=== PATIENT | male | born 1955 | race Caucasian/White ===

== ENCOUNTER 2022-12-21 13:10 | Inpatient (IN) | payer MEDICARE ==
[2022-12-21 14:57] LABS: Basophils # (A) 0.1 k/uL (0-0.2); Basophils % (A) 1 %; Eosinophils # (A) 0.1 k/uL (0-0.7); Eosinophils % (A) 1 %; HCT 31.9 % (39.0-53.0); HGB 10.8 gm/dL (13.0-17.5); Hypochromasia Slight; Lymphocytes # (A) 1.3 k/uL (1.0-4.8); Lymphocytes % (A) 17 %; MCH 33.7 pg (25.0-35.0); MCV 98.9 fL (80.0-100.0); Macrocytosis Slight; Mean Platelet Volume 8.3; Monocytes # (A) 0.9 k/uL (0-1.0); Monocytes % (A) 11 %; Neutrophils # (A) 5.2 k/uL (1.3-7.7); Neutrophils % (A) 67 %; Platelet Count 109 k/uL (150-450); RBC 3.22 m/uL (4.30-5.90); RDW 15.5 % (11.5-15.5); WBC 7.7 k/uL (3.8-10.6)
[2022-12-21 15:07] LABS: INR 1.2 (<1.2); Partial Thromboplastin Time 27.9 sec (22.0-30.0); Prothrombin Time 12.8 sec (9.0-12.0)
--- NOTE | 2022-12-21 15:08 | XR ---
EXAMINATION TYPE: XR chest 2V DATE OF EXAM: 12/21/2022 COMPARISON: NONE TECHNIQUE: PA and lateral views submitted. HISTORY: Difficulty breathing FINDINGS: There is right lower lobe infiltrate and consolidation with small effusion. Left lung clear. Heart size is prominent and there is ectasia of the aorta. Mild coarsening of the interstitium. No pn eumothorax. Osseous structures grossly intact. IMPRESSION: 1. Right lower lobe infiltrate and small effusion correlate for mild central venous congestion. Under lying pneumonia not excluded.
[2022-12-21 15:11] LABS: ALT 23 U/L (4-49); AST 34 U/L (17-59); African American GFR (CKD) 72 (>60 ml/min/1.73 sqM); Albumin 2.9 g/dL (3.5-5.0); Alkaline Phosphatase 94 U/L (38-126); Anion Gap 6 mmol/L; Blood Urea Nitrogen 19 mg/dL (9-20); Calcium 8.4 mg/dL (8.4-10.2); Carbon Dioxide 24 mmol/L (22-30); Chloride 106 mmol/L (98-107); Glucose 103 mg/dL (74-99); Non-African American GFR(CKD) 63 (>60 ml/min/1.73 sqM); Potassium 4.7 mmol/L (3.5-5.1); Sodium 136 mmol/L (137-145); Total Protein 7.1 g/dL (6.3-8.2)
--- NOTE | 2022-12-21 17:30 | ED ---
SOB HPI - General Chief Complaint: Shortness of Breath Stated Complaint: Asthma, SOB Time Seen by Provider: 12/21/22 17:29 Source: patient Mode of arrival: ambulatory Limitations: no limitations - History of Present Illness Initial Comments: 67-year-old male past medical history of asthma, nicotine use, liver cirrhosis - last alcoholic drink was one year ago, who presents emergency Department with shortness of breath. is at bedside and helps provide history. They normally reside in [place]. Came up to [place] in June the patient has had progressive worsening shortness of breath. He has been using his albuterol inhaler without any improvement in his symptoms. He was prescribed steroids one month ago and took the course without any improvement. He has had persistent lower extremity swelling. No history of DVT or PE. No history of congestive heart failure. Does admit to a yellow productive cough. No sick contacts. Denies fevers. No chest pain. No history of cardiac problems. Continues to smoke a pack a day. No other alleviating, precipitating modifying factors - Related Data Home Medications Medication Instructions Recorded Confirmed Cholecalciferol [Vitamin D3 (125 125 mcg PO DAILY 12/21/22 12/21/22 Mcg = 5000 Iu)] Saw [place] 500 mg PO DAILY 12/21/22 12/21/22 Super B Complex 1 cap PO DAILY 12/21/22 12/21/22 Turmeric Root Extract [Turmeric] 500 mg PO DAILY 12/21/22 12/21/22 lisinopriL [Zestril] 5 mg PO DAILY 12/21/22 12/21/22 Allergies Allergy/AdvReac Type Severity Reaction Status Date / Time pollen extracts Allergy Dyspnea Verified 12/21/22 18:39 strawberry Allergy Unknown Verified 12/21/22 18:39 Review of Systems ROS Statement: Those systems with pertinent positive or pertinent negative responses have been documented in the HPI. ROS Other: All systems not noted in ROS Statement are negative. Past Medical History Past Medical History: Asthma Additional Past Medical History / Comment(s): Cirrhosis and renal issues History of Any Multi-Drug Resistant Organisms: None Reported Past Surgical History: No Surgical Hx Reported Smoking Status: Current some day smoker Past Alcohol Use History: None Reported, Abuse Past Drug Use History: None Reported General Exam Limitations: no limitations General appearance: alert, in no apparent distress Head exam: Present: atraumatic, normocephalic, normal inspection Eye exam: Present: normal appearance, PERRL, EOMI. Absent: scleral icterus, conjunctival injection, periorbital swelling ENT exam: Present: normal exam, mucous membranes moist Neck exam: Present: normal inspection. Absent: tenderness, meningismus, lymphadenopathy Respiratory exam: Present: wheezes, accessory muscle use, other (Tachypnea). Absent: respiratory distress, rales, rhonchi, stridor Cardiovascular Exam: Present: regular rate, normal rhythm, normal heart sounds. Absent: systolic murmur, diastolic murmur, rubs, gallop, clicks GI/Abdominal exam: Present: soft, distended, normal bowel sounds. Absent: tenderness, guarding, rebound, rigid Extremities exam: Present: full ROM, normal capillary refill, pedal edema. Absent: tenderness, joint swelling, calf tenderness Back exam: Present: normal inspection Neurological exam: Present: alert, oriented X3, CN II-XII intact Psychiatric exam: Present: normal affect, normal mood Skin exam: Present: warm, dry, intact, normal color. Absent: rash Course Vital Signs 12/21/22 12/21/22 12/21/22 13:27 18:51 19:10 Temperature 97.4 F L Pulse Rate 96 89 89 Respiratory 24 18 18 Rate Blood Pressure 147/69 129/105 109/46 O2 Sat by Pulse 90 L 97 97 Oximetry 12/21/22 12/21/22 12/21/22 19:51 20:02 22:08 Temperature Pulse Rate 90 91 96 Respiratory 18 Rate Blood Pressure 97/50 O2 Sat by Pulse 95 93 L Oximetry 12/21/22 12/21/22 12/21/22 22:20 23:42 23:52 Temperature Pulse Rate 97 94 Respiratory Rate Blood Pressure O2 Sat by Pulse 95 Oximetry 12/22/22 00:00 Temperature Pulse Rate 99 Respiratory 18 Rate Blood Pressure 120/63 O2 Sat by Pulse 95 Oximetry Medical Decision Making - Medical Decision Making Was pt. sent in by a medical professional or institution (, [facility], EMBROIDERY CUTTER, urgent care, hospital, or snf...) When possible be specific @ -No Did you speak to anyone other than the patient for history (EMS, parent, family, police, friend...)? What history was obtained from this source @ -I spoke with the patient's in regards to his symptoms Did you review nursing and triage notes (agree or disagree)? Why? @ -I reviewed and agree with nursing and triage notes Were old charts reviewed (outside hosp., previous admission, EMS record, old EKG, old radiological studies, urgent care reports/EKG's, snf records)? Report findings @ -No old charts were reviewed Differential Diagnosis (chest pain, altered mental status, abdominal pain women, abdominal pain men, vaginal bleeding, weakness, fever, dyspnea, syncope, headache, dizziness, GI bleed, back pain, seizure, CVA, palpatations, mental health, musculoskeletal)? @ -Differential Dyspnea: Coronary syndrome, arrhythmia, tamponade, asthma, COPD, pulmonary embolism, pneumonia, pneumothorax, pulmonary effusion, anaphylaxis, diabetic ketoacidosis, flailed chest, pulmonary contusion, diaphragmatic rupture, anemia, neuromuscular, this is not meant to be an all-inclusive list. EKG interpreted by me (3pts min.). @ -Yes and demonstrates sinus rhythm rate of 91. WV interval 149. QRS 96. QTC of 420. No acute ST segment elevations or depressions X-rays interpreted by me (1pt min.). @ -Yes and demonstrates possible pneumonia right lower lobe with effusion CT interpreted by me (1pt min.). @ -None done U/S interpreted by me (1pt. min.). @ -None done What testing was considered but not performed or refused? (CT, X-rays, U/S, labs)? Why? @ -None What meds were considered but not given or refused? Why? @ -None Did you discuss the management of the patient with other professionals (rela zelaya i.e. , PA, EMBROIDERY CUTTER, lab, RT, psych nurse, social scientist, assembler molded frames, teacher, railroad police officer, outpatient case manager)? Give summary @ -Spoke with Elsa from [facility] who agreed to admit the patient Was smoking cessation discussed for >3mins.? @ -Yes. Patient not receptive to quitting. Nicotine patch is ordered Was critical care preformed (if so, how long)? @ -No Were there social determinants of health that impacted care today? How? (Homelessness, low income, unemployed, alcoholism, drug addiction, transportation, low edu. Level, literacy, decrease access to med. care, detention, rehab)? @ -No Was there de-escalation of care discussed even if they declined (Discuss DNR or withdrawal of care, Hospice)? DNR status @ -No What co-morbidities impacted this encounter? (DM, HTN, Smoking, COPD, CAD, Cancer, CVA, ARF, Chemo, Hep., AIDS, mental health diagnosis, sleep apnea, morbid obesity)? @ - Asthma Was patient admitted / discharged? Hospital course, mention meds given and route, prescriptions, significant lab abnormalities, going to OR and other pertinent info. @ -Upon arrival patient was placed into room 11. Thorough history and physical exam was performed. Patient is diffusely wheezy. IV is established. DuoNeb breathing treatment and 125 of Solu-Medrol is ordered. Laboratory studies are conducted. Patient does have an elevated bili however he does have known history of cirrhosis. Chest x-ray demonstrates right lower lobe pneumonia with effusion. Antibiotics are added. Echo was ordered. Recommended admission. Spoke with Elsa from the [facility]. Dr Lagunas will be placed on consult. Undiagnosed new problem with uncertain prognosis? @ -Yes Drug Therapy requiring intensive monitoring for toxicity (Heparin, Nitro, Insulin, Cardizem)? @ -No Were any procedures done? @ -No Diagnosis/symptom? @ -Acute respiratory insufficiency, acute asthma exacerbation, community- acquired pneumonia with effusion Acute, or Chronic, or Acute on Chronic? @ -Acute on chronic - asthma, acute- pneumonia Uncomplicated (without systemic symptoms) or Complicated (systemic symptoms)? @ -Complicated Side effects of treatment? @ -ALLERGIC reaction Exacerbation, Progression, or Severe Exacerbation? @ -Yes Poses a threat to life or bodily function? How? (Chest pain, [place], DE, pneumonia, PE, COPD, DKA, ARF, appy, cholecystitis, CVA, Diverticulitis, Homicidal, Suicidal, threat to staff... and all critical care pts) @ -No - Lab Data Result diagrams: 12/21/22 14:48 12/21/22 14:48 Lab Results 12/21/22 12/21/22 12/21/22 Range/Units 14:48 14:48 14:48 WBC 7.7 (3.8-10.6) k/uL RBC 3.22 L (4.30-5.90) m/uL Hgb 10.8 L (13.0-17.5) gm/dL Hct 31.9 L (39.0-53.0) % MCV 98.9 (80.0-100.0) fL MCH 33.7 (25.0-35.0) pg MCHC 34.0 (31.0-37.0) g/dL RDW 15.5 (11.5-15.5) % Plt Count 109 L (150-450) k/uL MPV 8.3 Neutrophils % 67 % Lymphocytes % 17 % Monocytes % 11 % Eosinophils % 1 % Basophils % 1 % Neutrophils # 5.2 (1.3-7.7) k/uL Lymphocytes # 1.3 (1.0-4.8) k/uL Monocytes # 0.9 (0-1.0) k/uL Eosinophils # 0.1 (0-0.7) k/uL Basophils # 0.1 (0-0.2) k/uL Hypochromasia Slight Macrocytosis Slight PT 12.8 H (9.0-12.0) sec INR 1.2 H (<1.2) APTT 27.9 (22.0-30.0) sec Sodium 136 L (137-145) mmol/L Potassium 4.7 (3.5-5.1) mmol/L Chloride 106 (98-107) mmol/L Carbon Dioxide 24 (22-30) mmol/L Anion Gap 6 mmol/L BUN 19 (9-20) mg/dL Creatinine 1.18 (0.66-1.25) mg/dL Est GFR (CKD-EPI)AfAm 72 (>60 ml/min/1.73 sqM) Est GFR (CKD-EPI)NonAf 63 (>60 ml/min/1.73 sqM) Glucose 103 H (74-99) mg/dL Calcium 8.4 (8.4-10.2) mg/dL Magnesium 2.0 (1.6-2.3) mg/dL Total Bilirubin 4.0 H (0.2-1.3) mg/dL AST 34 (17-59) U/L ALT 23 (4-49) U/L Alkaline Phosphatase 94 (38-126) U/L Troponin I (0.000-0.034) ng/mL NT-Pro-B Natriuret Pep pg/mL Total Protein 7.1 (6.3-8.2) g/dL Albumin 2.9 L (3.5-5.0) g/dL 12/21/22 12/21/22 Range/Units 14:48 14:48 WBC (3.8-10.6) k/uL RBC (4.30-5.90) m/uL Hgb (13.0-17.5) gm/dL Hct (39.0-53.0) % MCV (80.0-100.0) fL MCH (25.0-35.0) pg MCHC (31.0-37.0) g/dL RDW (11.5-15.5) % Plt Count (150-450) k/uL MPV Neutrophils % % Lymphocytes % % Monocytes % % Eosinophils % % Basophils % % Neutrophils # (1.3-7.7) k/uL Lymphocytes # (1.0-4.8) k/uL Monocytes # (0-1.0) k/uL Eosinophils # (0-0.7) k/uL Basophils # (0-0.2) k/uL Hypochromasia Macrocytosis PT (9.0-12.0) sec INR (<1.2) APTT (22.0-30.0) sec Sodium (137-145) mmol/L Potassium (3.5-5.1) mmol/L Chloride (98-107) mmol/L Carbon Dioxide (22-30) mmol/L Anion Gap mmol/L BUN (9-20) mg/dL Creatinine (0.66-1.25) mg/dL Est GFR (CKD-EPI)AfAm (>60 ml/min/1.73 sqM) Est GFR (CKD-EPI)NonAf (>60 ml/min/1.73 sqM) Glucose (74-99) mg/dL Calcium (8.4-10.2) mg/dL Magnesium (1.6-2.3) mg/dL Total Bilirubin (0.2-1.3) mg/dL AST (17-59) U/L ALT (4-49) U/L Alkaline Phosphatase (38-126) U/L Troponin I <0.012 (0.000-0.034) ng/mL NT-Pro-B Natriuret Pep 98 pg/mL Total Protein (6.3-8.2) g/dL Albumin (3.5-5.0) g/dL Disposition Clinical Impression: Asthma exacerbation, Pneumonia, Lymphedema Disposition: ADMITTED IP TO THIS HOSP Condition: Stable Is patient prescribed a controlled substance at d/c from ED?: No Time of Disposition: 18:27 Decision to Admit Reason: Admit from EC Decision Date: 12/21/22 Decision Time: 18:27
[2022-12-21] MEDS ORDERED: IPRATROPIUM-ALBUTEROL 3 ML NEB INHALATION STA (18:19)
[2022-12-21] MEDS ORDERED: methylPREDNISolone SOD SUCCI 125 MG/2 ML VIAL IV STA (18:20)
[2022-12-21] MEDS ORDERED: PNEUMONIA PROTOCOL UTILIZED 1 EACH MISC PO PRN (18:22)
[2022-12-21] MEDS ORDERED: AZITHROMYCIN 500 MG in SODIUM CHLORIDE 0.9% 250 ML IVPB STA (18:22)
[2022-12-21] MEDS ORDERED: NICOTINE 21MG/24HR PATCH TRANSDERM STA (18:28)
[2022-12-21] MEDS: IPRATROPIUM-ALBUTEROL 3 ML NEB INHALATION SCH ×2 (19:50→23:42)
[2022-12-21] MEDS: methylPREDNISolone SOD SUCCI 40 MG/ML 1 ML VIAL IV SCH (23:57)
[2022-12-22] MEDS ORDERED: IPRATROPIUM-ALBUTEROL 3 ML NEB INHALATION PRN (03:56)
--- NOTE | 2022-12-22 04:35 | P.CNPUL ---
History of Present Illness Consult date: 12/22/22 Requesting physician: Kimberly Arvizu Reason for consult: pneumonia Chief complaint: Shortness of breath History of present illness: I am seeing this patient in new consultation today 12/22/2022 for suspected right lower lobe community-acquired pneumonia. Patient is a 67-year-old white male with past medical history significant for asthma, alcoholism, alcoholic liver disease, and is a current tobacco smoker. Patient came to the emergency room yesterday evening complaining of shortness of breath and a nonproductive cough. He denies any fevers or chills. Denies sick contacts. Patient has had progressive ongoing shortness of breath since June when he came back from [place]. He does have a history of asthma, and uses a when necessary albuterol inhaler. This has not been helping. He continues to smoke approximately 5-6 cigarettes per day. He does have a distended abdomen and lower extremity edema. Denies any chest pain, palpitations, syncope, orthopnea. Denies any history of heart failure. Patient is currently sitting up in bed, on 2 L/m nasal cannula, in no acute distress. Chest x-ray on arrival shows a right lower lobe infiltrate and consolidation with a small right pleural effusion. CBC on arrival shows a WBC count of 7.7, hemoglobin 10.8, hematocrit 31.9, platelets 109. BMP on arrival was unremarkable. NT proBNP was low at 98. Troponin less than 0.012. LFTs are non-elevated, total bilirubin 4. Patient appears nontoxic, and is hemodynamically stable at this time. Review of Systems REVIEW OF SYSTEMS: CONSTITUTIONAL: Admits weight gain EYES: Denies change in vision. EARS, NOSE, MOUTH, THROAT: Denies headaches, denies sore throat. CARDIOVASCULAR: Denies chest pain, palpitations or syncopal episodes. Admits bilateral lower extremity swelling RESPIRATORY: Admits progressive shortness of breath and intermittent nonproductive cough. Denies any hemoptysis or congestion GASTROINTESTINAL: Denies change in appetite, abdominal pain, nausea and vomiting, or diarrhea. Admits abdominal distention GENITOURINARY: Denies hematuria, denies infections. MUSKULOSKELETAL: Denies pain, denies swelling. INTEGUMENTARY: Denies rash, denies eczema. NEUROLOGICAL: Denies recent memory loss, no recent seizure activity. PSYCHIATRIC: Denies anxiety, denies depression. HEMATOLOGIC/LYMPHATIC: Denies anemia, denies enlarged lymph node Past Medical History Past Medical History: Asthma Additional Past Medical History / Comment(s): Cirrhosis and renal issues History of Any Multi-Drug Resistant Organisms: None Reported Past Surgical History: No Surgical Hx Reported Smoking Status: Current some day smoker Past Alcohol Use History: None Reported, Abuse Past Drug Use History: None Reported Medications and Allergies Home Medications Medication Instructions Recorded Confirmed Type Cholecalciferol [Vitamin D3 (125 125 mcg PO DAILY 12/21/22 12/21/22 History Mcg = 5000 Iu)] Saw [place] 500 mg PO DAILY 12/21/22 12/21/22 History Super B Complex 1 cap PO DAILY 12/21/22 12/21/22 History Turmeric Root Extract [Turmeric] 500 mg PO DAILY 12/21/22 12/21/22 History lisinopriL [Zestril] 5 mg PO DAILY 12/21/22 12/21/22 History Allergies Allergy/AdvReac Type Severity Reaction Status Date / Time pollen extracts Allergy Dyspnea Verified 12/21/22 18:39 strawberry Allergy Unknown Verified 12/21/22 18:39 Physical Exam Vitals: Vital Signs Temp Pulse Resp BP Pulse Ox 12/22/22 03:00 104 H 18 122/65 94 L 12/22/22 00:00 99 18 120/63 95 12/21/22 23:52 94 12/21/22 23:42 97 12/21/22 22:20 95 12/21/22 22:08 96 18 97/50 93 L 12/21/22 20:02 91 12/21/22 19:51 90 95 12/21/22 19:10 89 18 109/46 97 12/21/22 18:51 89 18 129/105 97 12/21/22 13:27 97.4 F L 96 24 147/69 90 L Intake and Output 12/21/22 12/21/22 12/22/22 14:59 22:59 06:59 Other: Weight 106.594 kg GENERAL EXAM: Alert, is 67-year-old white male appearing stated age, comfortable in no apparent distress. HEAD: Normocephalic and atraumatic EYES: Normal reaction of pupils, equal size. Nonicteric sclera NOSE: Clear with pink turbinates. THROAT: No erythema or exudates. NECK: No masses, no JVD. CHEST: No chest wall deformity. LUNGS: Equal air entry with expiratory wheezes heard throughout. There n are diminished lung sounds at the right base, along with inspiratory crackles at the left base. on 2 L/m nasal cannula. No conversational dyspnea or accessory muscle use.. CVS: S1 and S2 normal with no audible murmur, regular rhythm. No extra heart sounds. ABDOMEN: Abdomen is quite distended, active bowel sounds, no guarding or rigidity. SPINE: No scoliosis or deformity SKIN: No rashes CENTRAL NERVOUS SYSTEM: No focal deficits, tone is normal in all 4 extremities. EXTREMITIES: There 3+ bilateral lower extremity pitting edema. No clubbing, or cyanosis. Peripheral pulses are intact. Results - Laboratory Findings CBC and BMP: 12/21/22 14:48 12/21/22 14:48 PT/INR, D-dimer PT 12.8 sec (9.0-12.0) H 12/21/22 14:48 INR 1.2 (<1.2) H 12/21/22 14:48 Abnormal lab findings: Abnormal Labs 12/21/22 12/21/22 12/21/22 14:48 14:48 14:48 RBC 3.22 L Hgb 10.8 L Hct 31.9 L Plt Count 109 L PT 12.8 H INR 1.2 H Sodium 136 L Glucose 103 H Total Bilirubin 4.0 H Albumin 2.9 L - Diagnostic Findings Chest x-ray: image reviewed Assessment and Plan Assessment: Acute hypoxemic respiratory failure secondary to suspected right lower lobe community-acquired pneumonia. Chest x-ray on arrival shows a right lower lobe infiltrate and small pleural effusion. Acute asthma exacerbation, secondary to above Bilateral lower extremity edema Essential hypertension History of alcoholism History of alcoholic liver disease Thrombocytopenia, likely related to above Chronic ongoing nicotine dependence Plan: Patient's medications, labs, chest x-ray reviewed Continue supplemental oxygen Continue empiric antibiotics Check procalcitonin level Blood cultures are pending Start Lasix 20 mg twice a day Echocardiogram ordered for the morning Start patient on a combination of bronchodilators, Symbicort inhaler, and IV Solu-Medrol We will continue to follow I have personally seen and examined the patient, performed the documentation and the assessment and plan as written. Number of minutes spent on the visit:20 This is a joint evaluation that was done along with the nurse practitioner. The patient was restless for shortness of breath. Chest x-ray shows a right lower lobe consolidation right-sided pleural effusion. At the same time the patient's abdominal distention, possible ascites, and chronic lower extremity edema. He may have underlying chronic liver disease. Possibility of a right lower lobe pneumonia cannot be completely excluded. The patient is currently covered with with IV Rocephin and Zithromax. Is also being treated for an acute COPD exacerbation. Echocardiogram is pending. We'll proceed with a CAT scan of the chest. He is a chronic smoker. He is a previous alcoholic, no active drinking for now. Prognosis guarded. We'll continue to follow. Deceleration within a more than 30 minutes. Time with Patient: Greater than 30
[2022-12-22] MEDS: SYMBICORT 160-4.5 MCG INHALER INHALATION SCH ×2 (08:18→18:10)
[2022-12-22] MEDS: IPRATROPIUM-ALBUTEROL 3 ML NEB INHALATION SCH ×4 (08:18→18:13)
--- NOTE | 2022-12-22 08:39 | XR ---
EXAMINATION TYPE: XR chest 2V DATE OF EXAM: 12/22/2022 COMPARISON: 12/21/2022 HISTORY: 67-year-old male with pneumonia TECHNIQUE: PA and lateral views FINDINGS: Heart normal size. Ectatic/tortuous thoracic aorta. I'm going moderate right pleural effusion with ad jacent opacity. Some mild patchy or strandy left basilar opacity similar. IMPRESSION: Ongoing moderate right effusion with adjacent atelectasis and/or consolidation. Similar mild patchy l eft basilar density as well. Trace left effusion noted on the lateral view.
[2022-12-22] MEDS ORDERED: NON FORMULARY DRUG (Saw Palmetto [Saw Palmetto] 500 MG Capsule) PO SCH (09:00)
[2022-12-22] MEDS ORDERED: NON FORMULARY DRUG (Turmeric Root Extract [Turmeric] 500 MG Tablet) PO SCH (09:00)
[2022-12-22] MEDS: methylPREDNISolone SOD SUCCI 40 MG/ML 1 ML VIAL IV SCH ×3 (10:25→23:48)
[2022-12-22] MEDS: FUROSEMIDE 10 MG/ML 2 ML VIAL IV SCH ×2 (10:25→20:38)
[2022-12-22] MEDS: lisinopriL 5 MG TAB PO SCH (10:25)
[2022-12-22] MEDS: CHOLECALCIFEROL 125 MCG (5000 IU) TABLET PO SCH (10:25)
[2022-12-22] MEDS: FOLIC ACID-VIT B COMPLEX-VIT C 1 CAP PO SCH (10:36)
--- NOTE | 2022-12-22 12:21 | CA ---
Transthoracic Echo Report Name: Zac De La Fuente Age: 67 Gender: M : 1955 Exam Date: 12/22/2022 09:42 Exam Location: [facility] Ht (in): 67 Wt (lb): 235 Ordering Physician: Kimberly Arvizu DO Attending/Referring Phys: [id number], [place] Eradicator Aaron Frye Procedure CPT: Indications: le swelling, vasular congestion Cardiac Hx: Technical Quality: Fair Contrast 1: Total Dose (mL): Contrast 2: Total Dose (mL): MEASUREMENTS (Male / Female) Normal Values 2D ECHO LV Diastolic Diameter PLAX 4.4 cm 4.2 - 5.9 / 3.9 - 5.3 cm LV Systolic Diameter PLAX 3.0 cm IVS Diastolic Thickness 1.6 cm 0.6 - 1.0 / 0.6 - 0.9 cm LVPW Diastolic Thickness 1.1 cm 0.6 - 1.0 / 0.6 - 0.9 cm LV Relative Wall Thickness 0.6 RV Internal Dim ED PLAX 3.9 cm LVOT Diameter 2.1 cm Aortic Root Diameter 2.7 cm LA Systolic Diameter LX 3.2 cm 3.0 - 4.0 / 2.7 - 3.8 cm LV Diastolic Volume MOD BP 81.3 cm??? 67 - 155 / 56 - 104 cm??? LV Systolic Volume MOD BP 34.7 cm??? 22 - 58 / 19 - 49 cm??? LV Ejection Fraction MOD BP 57.3 % >= 55 % LV Cardiac Index MOD BP 2055.7 cm???/min???m??? LV Diastolic Volume MOD 4C 83.9 cm??? LV Systolic Volume MOD 4C 24.2 cm??? LV Ejection Fraction MOD 4C 71.2 % LV Cardiac Index MOD 4C 2633.6 cm???/min???m??? LV Diastolic Length 4C 8.7 cm LV Systolic Length 4C 6.2 cm LV Diastolic Volume MOD 2C 79.0 cm??? LV Systolic Volume MOD 2C 43.7 cm??? LV Ejection Fraction MOD 2C 44.7 % LV Cardiac Index MOD 2C 1558.6 cm???/min???m??? LV Diastolic Length 2C 8.6 cm LV Systolic Length 2C 7.3 cm LA Volume 50.7 cm??? 18 - 58 / 22 - 52 cm??? Ascending Aorta Diameter 3.0 cm DOPPLER AV Peak Velocity 180.9 cm/s AV Peak Gradient 13.1 mmHg LVOT Peak Velocity 138.1 cm/s LVOT Peak Gradient 7.6 mmHg AV Area Cont Eq pk 2.7 cm??? MR Peak Velocity 442.2 cm/s MR Peak Gradient 78.2 mmHg Mitral E Point Velocity 108.5 cm/s Mitral A Point Velocity 137.0 cm/s Mitral E to A Ratio 0.8 MV Deceleration Time 189.9 ms MV E' Velocity 7.7 cm/s Mitral E to MV E' Ratio 14.1 TR Peak Velocity 162.0 cm/s TR Peak Gradient 10.5 mmHg Right Ventricular Systolic Press 15.5 mmHg PV Peak Velocity 156.0 cm/s PV Peak Gradient 9.7 mmHg FINDINGS Left Ventricle Normal LV size and wall thickness. Left ventricular ejection fraction is estimated at 55-60 %. Right Ventricle Normal right ventricular size. Right Atrium Normal right atrial size. Left Atrium Normal left atrial size. LA volume index= 23.4ml/m2 Mitral Valve Structurally normal mitral valve. Mild MR. Aortic Valve Mild to moderate AV calcification.no aortic valve stenosis or regurgitation. Tricuspid Valve Structurally normal tricuspid valve. Mild TR. Pulmonic Valve Pulmonic valve not well visualized. No pulmonic regurgitation. Pericardium Left pleural effusion. Aorta Normal size aortic root and proximal ascending aorta. CONCLUSIONS Normal left ventricular ejection fraction 55% Mild mitral regurgitation Aortic valve calcification without significant aortic stenosis Mild tricuspid regurgitation Left pleural effusion noted Previewed by: Dr. Sanket Beach DO (Electronically Signed) Final Date: 22 December 2022 12:19
--- NOTE | 2022-12-22 13:48 | CT ---
EXAMINATION TYPE: CT chest w con CT DLP: 564.5 mGycm, Automated exposure control for dose reduction was used. DATE OF EXAM: 12/22/2022 1:32 PM COMPARISON: Chest radiograph from 12/22/2022 CLINICAL INDICATION:Male, 67 years old with history of copd exc; PHH, cough, copd TECHNIQUE: Multiple axial images were obtained through the chest following the administration of 100 cc of Isovue 300. . MIP was performed Coronal and sagittal reformats reviewed. FINDINGS: LUNGS/ PLEURA: Persistent moderate to large right pleural effusion with associated atelectasis. Left lung is clear. Spiculated 1.2 cm nodular density within the anterior left upper lobe (series 4, image 21). No pneumothorax. Punctate calcified granulomas within the atelectatic right lower lobe AIRWAY: Patent and unremarkable.. HEART: Size within normal limits. No pericardial effusion. Minimal coronary arterial calcifications. MEDIASTINUM: No evidence of adenopathy. VASCULATURE: No aortic aneurysm. Atherosclerotic calcification of the aorta and its branches. MUSCULOSKELETAL: No acute osseous abnormalities SOFT TISSUES/LYMPH NODES: Unremarkable. LOWER NECK: No significant findings. UPPER ABDOMEN: Cirrhotic appearance of the liver with surface nodular contour, widened fissures, post erior notch sign. At least moderate volume ascites identified within the visualized upper abdomen. Sm all hiatal hernia. Paraesophageal collaterals. Gastrohepatic collateral vessels identified. Perisplen ic collateral vessels identified. Spleen is enlarged measuring at least 14.1 cm in CC dimension. IMPRESSION: 1. Moderate to large right pleural effusion with associated atelectasis. 2. Left upper lobe spiculated 1.2 cm nodular density. PET/CT is recommended for further evaluation. 3. Findings consistent with hepatic cirrhosis with portal hypertension including splenomegaly, at yvon[address] st moderate ascites, and collateral vessels.
[2022-12-22] MEDS: AZITHROMYCIN 500 MG TAB PO SCH (15:59)
--- NOTE | 2022-12-23 03:41 | P.HPIM ---
History of Present Illness H&P Date: 12/22/22 This is a 67-year-old male who presented to the emergency department with increasing shortness of breath. Per family at the bedside patient has been having progressive shortness of breath that has been ongoing over the last few months although progressively getting worse over the last few days requiring patient is currently maintained on 3 L via nasal cannula and does not normally wear oxygen outpatient. Patient reports he lives in [place] most of the time and has a primary care provider there and currently returns to [place] sometime in January or February. Patient reports to the past medical history of asthma, cirrhosis of the liver with some kidney issues, former alcoholic and quit one year ago, and continue nicotine dependence. Patient denies any other illicit drug use. Patient's at bedside reports he does have an outpatient follow- up appointment to establish with the GI sometime in early February in [place]. In the ER patient was given IV steroids and started on 60 every 6 along with breathing treatments and supplemental oxygen. Chest x-ray showed right lower lobe infiltrate and small effusion to correlate for mild central venous congestion. Patient was started on IV Lasix as well as ceftriaxone and Zithromax. Pulmonary was consulted along with 2-D echo ordered improved calcitonin. Patient with significant lower extremity swelling 2+ pitting and reports no history of heart failure that he is aware of and family at bedside reports he chronically has swelling weakness of the lower extremities. EKG was within normal limits and 2-D echo pending at this time. Patient was admitted under observation for asthma exacerbation and possible pneumonia. Patient will require more than 2 day hospitalization given patient's significant shortness of breath. Patient also with some extensive abdominal protuberance most likely ascites is patient has cirrhosis but has not been managed in the outpatient setting. Will consult GI and appreciate input and recommendations. Review Of Systems: Constitutional: No fever, no chills, no night sweats. No weight change. No weakness, fatigue or lethargy. No daytime sleepiness. EENT: No headache. No blurred vision or double vision, no loss of vision. No loss of Hearing, no ringing in the ears, no dizziness. No nasal drainage or congestion. No epistaxis. No sore throat. Lungs: Reports significant shortness of breath that has been progressively getting worse, reports cough, no sputum production. Reports wheezing. Cardiovascular: No chest pain, no lower extremity edema. No palpitations. No paroxysmal nocturnal dyspnea. No orthopnea. No lightheadedness or dizziness. No syncopal episodes. Abdominal: No abdominal pain. Reports abdominal distention which is chronic No nausea, vomiting. Reports diarrhea. No constipation. No bloody or tarry stools.. No loss of appetite. Genitourinary: No dysuria, increased frequency, urgency. No urinary retention. Musculoskeletal: No myalgias. No muscle weakness, no gait dysfunction, no frequent falls. No back pain. No neck pain. Integumentary: No wounds, no lesions. No rash or pruritus. No unusual bruising. No change in hair or nails. Neurologic: No aphasia. No facial droop. No change in mentation. No head injury. No headache. No paralysis. No paresthesia. Psychiatric: No depression. No anxiety. No mood swings. Endocrine: No abnormal blood sugars. No weight change. No excessive sweating or thirst. No cold intolerance. PHYSICAL EXAMINATION: GENERAL: The patient is alert and oriented x4, Well developed, well nourished. Obese HEENT: Pupils are round and equally reacting to light. EOMI. no scleral icterus. No conjunctival pallor. Normocephalic, atraumatic. No pharyngeal erythema. No thyromegaly. CARDIOVASCULAR: S1 and S2 muffled PULMONARY: diminished breath sounds bilaterally more so on the right with some faint expiratory wheezing and coarse rhonchi noted. ABDOMEN: soft. Nontender on exam. obese. distended, normoactive bowel sounds. No palpable organomegaly. MUSCULOSKELETAL: No joint swelling or deformity. EXTREMITIES: No cyanosis, clubbing, 2+ pedal edema. NEUROLOGICAL: Gross neurological examination did not reveal any focal deficits. SKIN: No rashes. Assessment: Shortness of breath with acute hypoxic respiratory failure secondary to chronic obstructive pulmonary disease, acute exacerbation History of asthma Right lower lobe infiltrate, community-acquired Bilateral pleural effusions Continued ongoing nicotine dependence Hypertension history Cirrhosis, most likely alcoholic from previous abuse, quit one year ago in February History of alcohol abuse Thrombocytopenia, secondary to above Obesity with a BMI of 36.8 GI prophylaxis DVT prophylaxis Full code Plan: Patient was started on Antibiotics and procalcitonin ordered with concerns of right lower lobe infiltrate Pulmonary consulted patient was started on IV steroids along with breathing inhalational treatments and CT chest ordered as chest x-ray showing pleural effusions Patient with bilateral lower extremity edema and patient with family reports this is chronic, encouraged patient to elevate lower extremity swelling rest and was started on IV Lasix twice daily. Juan Daniel wrap to bilateral lower extremities and elevating the rest Will follow-up on repeat labs in a.m. BNP was within normal limits and troponin was negative, 2-D echo ordered and pending Patient is currently maintained on 3 L via nasal cannula and does not wear oxygen outpatient, will order incentive spirometer and wean FiO2 as tolerated Patient with cirrhosis has not been managed by GI in the outpatient setting and has an appointment in [place] where he lives sometime in February. Will consult GI and appreciate input recommendations Encouraged complete smoking cessation and will order nicotine patch if needed The impression and plan of care has been dictated by Loree Mayorga, nurse practitioner as directed. Dr. Brice MD I have performed a history and examination and MDM of this patient, discussed the same with the dictator, and agree with the dictator's assessment and plan as written ,documented as a scribe. Based on total visit time, I have performed more than 50% of the visit. Any additional findings or plans will be noted. Past Medical History Past Medical History: Asthma Additional Past Medical History / Comment(s): Cirrhosis and renal issues History of Any Multi-Drug Resistant Organisms: None Reported Past Surgical History: No Surgical Hx Reported Smoking Status: Current some day smoker Past Alcohol Use History: None Reported, Abuse Past Drug Use History: None Reported Medications and Allergies Home Medications Medication Instructions Recorded Confirmed Type Cholecalciferol [Vitamin D3 (125 125 mcg PO DAILY 12/21/22 12/21/22 History Mcg = 5000 Iu)] Saw [place] 500 mg PO DAILY 12/21/22 12/21/22 History Super B Complex 1 cap PO DAILY 12/21/22 12/21/22 History Turmeric Root Extract [Turmeric] 500 mg PO DAILY 12/21/22 12/21/22 History lisinopriL [Zestril] 5 mg PO DAILY 12/21/22 12/21/22 History Allergies Allergy/AdvReac Type Severity Reaction Status Date / Time pollen extracts Allergy Dyspnea Verified 12/21/22 18:39 strawberry Allergy Unknown Verified 12/21/22 18:39 Physical Exam Vitals: Vital Signs Temp Pulse Pulse Resp BP BP Pulse Ox 12/22/22 08:19 104 H 96 12/22/22 07:26 97.6 F 101 H 17 138/72 100 12/22/22 05:59 106 H 18 105/58 95 12/22/22 04:41 105 H 12/22/22 04:32 104 H 12/22/22 03:00 104 H 18 122/65 94 L 12/22/22 00:00 99 18 120/63 95 12/21/22 23:52 94 12/21/22 23:42 97 12/21/22 22:20 95 12/21/22 22:08 96 18 97/50 93 L 12/21/22 20:02 91 12/21/22 19:51 90 95 12/21/22 19:10 89 18 109/46 97 12/21/22 18:51 89 18 129/105 97 12/21/22 13:27 97.4 F L 96 24 147/69 90 L Intake and Output 12/21/22 12/22/22 12/22/22 22:59 06:59 14:59 Intake Total 118 Balance 118 Intake: Oral 118 Results CBC & Chem 7: 12/21/22 14:48 12/21/22 14:48 Labs: Abnormal Lab Results - Last 24 Hours (Table) 12/21/22 12/21/22 12/21/22 Range/Units 14:48 14:48 14:48 RBC 3.22 L (4.30-5.90) m/uL Hgb 10.8 L (13.0-17.5) gm/dL Hct 31.9 L (39.0-53.0) % Plt Count 109 L (150-450) k/uL PT 12.8 H (9.0-12.0) sec INR 1.2 H (<1.2) Sodium 136 L (137-145) mmol/L Glucose 103 H (74-99) mg/dL Total Bilirubin 4.0 H (0.2-1.3) mg/dL Albumin 2.9 L (3.5-5.0) g/dL Assessment and Plan Time with Patient: Greater than 30
[2022-12-23] MEDS: methylPREDNISolone SOD SUCCI 40 MG/ML 1 ML VIAL IV SCH ×2 (07:59→15:37)
[2022-12-23] MEDS: FUROSEMIDE 10 MG/ML 2 ML VIAL IV SCH (08:00)
[2022-12-23] MEDS: CHOLECALCIFEROL 125 MCG (5000 IU) TABLET PO SCH (08:00)
[2022-12-23] MEDS: lisinopriL 5 MG TAB PO SCH (08:00)
[2022-12-23] MEDS: FOLIC ACID-VIT B COMPLEX-VIT C 1 CAP PO SCH (08:00)
[2022-12-23 08:49] LABS: BUN/Creat Ratio 22.31 Ratio (12.00-20.00); Blood Urea Nitrogen 35.7 mg/dL (9.0-27.0); Calcium 8.5 mg/dL (8.7-10.3); Carbon Dioxide 21.5 mmol/L (21.6-31.8); Chloride 105 mmol/L (96-109); Glucose 127 mg/dL (70-110); Magnesium 2.1 mg/dL (1.5-2.4); Potassium 5.1 mmol/L (3.5-5.5); Sodium 134 mmol/L (135-145)
[2022-12-23] MEDS: IPRATROPIUM-ALBUTEROL 3 ML NEB INHALATION SCH ×4 (08:49→19:44)
[2022-12-23] MEDS: SYMBICORT 160-4.5 MCG INHALER INHALATION SCH ×2 (08:50→19:44)
[2022-12-23] MEDS: SPIRONOLACTONE 25 MG TAB PO SCH (09:18)
[2022-12-23 09:46] LABS: Acanthocytes 2+; Basophils # (A) 0.01 X 10*3/uL (0.00-0.10); Basophils % (A) 0.1 %; Eosinophils # (A) 0 X 10*3/uL (0.04-0.35); Eosinophils % (A) 0 %; HCT 24.7 % (39.6-50.0); HGB 8.1 d/dL (13.0-17.0); Lymphocytes # (A) 0.78 X 10*3/uL (0.90-5.00); Lymphocytes % (A) 7.5 %; MCH 32.4 pg (27.0-32.0); MCHC 32.8 d/dL (32.0-37.0); MCV 98.8 FL (80.0-97.0); Macrocytosis (M) 2+; Mean Platelet Volume 10.2 FL (9.5-12.2); Monocytes # (A) 0.61 X 10*3/uL (0.20-1.00); Monocytes % (A) 5.9 %; NRBC Per 100 WBC 0 X 10*3/uL (0.00-0.01); Neutrophils % (A) 85.6 %; Platelet Count 87 X 10*3/uL (140-440); RDW 16.4 % (11.5-14.5); WBC 10.39 X 10*3/uL (4.50-10.00)
--- NOTE | 2022-12-23 14:24 | P.PN ---
Subjective Progress Note Date: 12/23/22 I am seeing this patient in new consultation today 12/22/2022 for suspected right lower lobe community-acquired pneumonia. Patient is a 67-year-old white male with past medical history significant for asthma, alcoholism, alcoholic liver disease, and is a current tobacco smoker. Patient came to the emergency room yesterday evening complaining of shortness of breath and a nonproductive cough. He denies any fevers or chills. Denies sick contacts. Patient has had progressive ongoing shortness of breath since June when he came back from [place]. He does have a history of asthma, and uses a when necessary albuterol inhaler. This has not been helping. He continues to smoke approximately 5-6 ci garettes per day. He does have a distended abdomen and lower extremity edema. Denies any chest pain, palpitations, syncope, orthopnea. Denies any history of heart failure. Patient is currently sitting up in bed, on 2 L/m nasal cannula, in no acute distress. Chest x-ray on arrival shows a right lower lobe infiltrate and consolidation with a small right pleural effusion. CBC on arrival shows a WBC count of 7.7, hemoglobin 10.8, hematocrit 31.9, platelets 109. BMP on arrival was unremarkable. NT proBNP was low at 98. Troponin less than 0.012. LFTs are non-elevated, total bilirubin 4. Patient appears nontoxic, and is hemodynamically stable at this time. On today's evaluation of a 2022, the patient continues to be short of breath. Limited improvement since yesterday the patient is on accommodation of Rocephin and Zithromax. CAT scan of the chest was done yesterday and the patient was found to have a large right-sided pleural effusion along with compressive atelectasis in the right lung base. There is also nonspecific left upper lobe density measuring 1.2 cm in size. The patient has underlying liver cirrhosis with portal hypertension and splenomegaly and presence of paraesophageal collaterals and gastrohepatic lateral vessels all consistent with liver cirrhosis. He continues to have lower extremity edema. He does have moderate volume of ascites also identified. The echo was also done and the patient was found to have a normal LV function, no significant valvular abnormalities. The echoes at 10 hemoglobin of 8.1 and a platelet count of 87. Sodium is at 134, BUN is at 35 with a creatinine of 1.6. The pro-calcitonin level is at 0.09. He does have significant edema lower extremity bilaterally and the patient remains on IV Lasix. Objective - Vital Signs Vital signs: Vital Signs Temp 97.7 F 12/23/22 07:50 Pulse 104 H 12/23/22 12:55 Resp 16 12/23/22 07:50 BP 104/50 12/23/22 07:50 Pulse Ox 92 L 12/23/22 08:54 FiO2 Intake & Output 12/22/22 12/23/22 12/23/22 18:59 06:59 18:59 Intake Total 464 Balance 464 Intake: Intake, IV Titration 50 Amount cefTRIAXone 2 gm In 50 Sodium Chloride 0.9% 50 ml @ 100 mls/hr IVPB Q24HR [facility] Rx#:[id number] Oral 414 Other: Voiding Method Toilet Toilet # Voids 2 3 - Exam GENERAL EXAM: Alert, is 67-year-old white male appearing stated age, comfortable in no apparent distress. The patient is currently on 2 L of oxygen nasal cannula HEAD: Normocephalic and atraumatic EYES: Normal reaction of pupils, equal size. Nonicteric sclera NOSE: Clear with pink turbinates. THROAT: No erythema or exudates. NECK: No masses, no JVD. CHEST: No chest wall deformity. LUNGS: Equal air entry with expiratory wheezes heard throughout. There n are diminished lung sounds at the right base, along with inspiratory crackles at the left base. on 2 L/m nasal cannula. No conversational dyspnea or accessory muscle use.. CVS: S1 and S2 normal with no audible murmur, regular rhythm. No extra heart sounds. ABDOMEN: Abdomen is quite distended, active bowel sounds, no guarding or rigidity. SPINE: No scoliosis or deformity SKIN: No rashes CENTRAL NERVOUS SYSTEM: No focal deficits, tone is normal in all 4 extremities. EXTREMITIES: There 3+ bilateral lower extremity pitting edema. No clubbing, or cyanosis. Peripheral pulses are intact. - Labs CBC & Chem 7: 12/23/22 05:46 12/23/22 05:46 Labs: Abnormal Lab Results - Last 24 Hours (Table) 12/23/22 12/23/22 Range/Units 05:46 05:46 WBC 10.39 H (4.50-10.00) X 10*3/uL RBC 2.50 L (4.40-5.60) X 10*6/uL Hgb 8.1 L (13.0-17.0) d/dL Hct 24.7 L (39.6-50.0) % MCV 98.8 H (80.0-97.0) FL MCH 32.4 H (27.0-32.0) pg RDW 16.4 H (11.5-14.5) % Plt Count 87 L (140-440) X 10*3/uL Neutrophils # 8.90 H (1.80-7.70) X 10*3/uL Lymphocytes # 0.78 L (0.90-5.00) X 10*3/uL Eosinophils # 0 L (0.04-0.35) X 10*3/uL Macrocytosis (manual) 2+ A Acanthocytes (Spur) 2+ A Sodium 134 L (135-145) mmol/L Carbon Dioxide 21.5 L (21.6-31.8) mmol/L BUN 35.7 H (9.0-27.0) mg/dL Creatinine 1.6 H (0.6-1.5) mg/dL Est GFR (CKD-EPI) 46 L (>=60) BUN/Creatinine Ratio 22.31 H (12.00-20.00) Ratio Glucose 127 H (70-110) mg/dL Calcium 8.5 L (8.7-10.3) mg/dL Microbiology - Last 24 Hours (Table) 12/21/22 18:45 Blood Culture - Preliminary Blood 12/21/22 19:00 Blood Culture - Preliminary Blood Assessment and Plan Assessment: Acute hypoxemic respiratory failure secondary to suspected right lower lobe community-acquired pneumonia. CAT scan of the chest confirms presence of moderate to large size right-sided pleural effusion. Chronic liver cirrhosis alcoholic in nature with evidence of splenomegaly, portal hypertension and ascites and lower extremity edema Acute kidney injury and the patient is currently on Lasix Shortness of breath secondary to above Acute asthma exacerbation, secondary to above Bilateral lower extremity edema Essential hypertension History of alcoholism Thrombocytopenia, likely related to above, secondary to chronic liver disease Chronic ongoing nicotine dependence Nonspecific left upper lobe pulmonary nodule measuring around 1 cm in size, subpleural, likely inflammatory Plan Right-sided thoracentesis was done and a total of 1.6 L of fluid was aspirated. Awaiting fluid analysis. The fluid itself was somewhat bloody dark red in color. Patient tolerated the procedure well Echocardiogram was noted and the patient presented function Consider paracentesis Continue IV Lasix and monitor renal function Continue antibiotics Pneumonia is doubtful. Pro-calcitonin level is low We'll continue to follow
--- NOTE | 2022-12-23 14:25 | P.PCN ---
Date of Procedure: 12/23/22 Preoperative Diagnosis: Right-sided pleural effusion Postoperative Diagnosis: Same Procedure(s) Performed: Thoracentesis, right side Anesthesia: local Surgeon: Christiano Gonzales Estimated Blood Loss (ml): 0 Pathology: other Condition: stable Disposition: floor Operative Findings: A time out was performed and the chest x-ray was reviewed, the appropriate side was confirmed and marked. My hands were washed immediately prior to the procedure. I wore a surgical cap, mask with protective eyewear, sterile gown and sterile gloves throughout the procedure. The patient was prepped and draped in a sterile manner using chlorhexidine scrub after the appropriate level was percus sed and confirmed by ultrasound. 1% lidocaine was used to anesthesize the skin, subcutaneous tissue, superior aspect of the rib periosteum and parietal pleura. A finder needle was then introduced over the superior aspect of the rib to locate the pleural fluid; 2colored fluid was aspirated at a depth of approximately 2 cm. A 10-blade scalpel was used to lindsay the skin at the insertion site. The [id number] needle was then introduced through the skin incision into the pleural space using negative aspiration pressure and the red colometric indicator to confirm appropriate positioning of the needle. The thoracentesis catheter was then threaded without difficulty. 1600 ml of turbid dark red colored fluid was removed without difficulty. The catheter was then removed. No immediate complications were noted during the procedure. A post- procedure chest x-ray is pending at the time of this note. The fluid will be sent for studies. Estimated blood loss is 0cc
--- NOTE | 2022-12-23 14:34 | XR ---
EXAMINATION TYPE: XR chest 2V DATE OF EXAM: 12/23/2022 2:28 PM COMPARISON: Chest radiographs from 12/22/2022, CT chest dated 12/22/2022 TECHNIQUE: XR chest 2V Frontal and lateral views of the chest. CLINICAL INDICATION:Male, 67 years old with history of thoracentesis right lung; FINDINGS: Lungs/Pleura: Small to moderate size right pleural effusion with associated atelectasis. No pneumotho rax. Pulmonary vascularity: Mild pulmonary vascular congestion. Heart/mediastinum: Cardiomediastinal silhouette is unremarkable. Musculoskeletal: Multiple level degenerative disc disease changes seen throughout the spine. IMPRESSION: 1. Small to moderate-sized right pleural effusion status post thoracentesis. No pneumothorax. 2. Mild pulmonary vascular congestion.
--- NOTE | 2022-12-23 15:11 | US ---
EXAMINATION TYPE: US abdomen limited DATE OF EXAM: 12/23/2022 COMPARISON: NONE CLINICAL INDICATION: Male, 67 years old with history of ascites; ABD distention TECHNIQUE: Multiple castro scale images of both legs were obtained. FINDINGS/IMPRESSION: Moderate amount of ascites identified within the right flank.
--- NOTE | 2022-12-23 15:19 | P.PN ---
Subjective Progress Note Date: 12/23/22 This is a 67-year-old male who presented to the emergency department with increasing shortness of breath. Per family at the bedside patient has been having progressive shortness of breath that has been ongoing over the last few months although progressively getting worse over the last few days requiring patient is currently maintained on 3 L via nasal cannula and does not normally wear oxygen outpatient. Patient reports he lives in [place] most of the time and has a primary care provider there and currently returns to [place] sometime in January or February. Patient reports to the past medical history of asthma, cirrhosis of the liver with some kidney issues, former alcoholic and quit one ye ar ago, and continue nicotine dependence. Patient denies any other illicit drug use. Patient's at bedside reports he does have an outpatient follow-up appointment to establish with the GI sometime in early February in [place]. In the ER patient was given IV steroids and started on 60 every 6 along with breathing treatments and supplemental oxygen. Chest x-ray showed right lower lobe infiltrate and small effusion to correlate for mild central venous congestion. Patient was started on IV Lasix as well as ceftriaxone and Zithromax. Pulmonary was consulted along with 2-D echo ordered improved calcitonin. Patient with significant lower extremity swelling 2+ pitting and reports no history of heart failure that he is aware of and family at bedside reports he chronically has swelling weakness of the lower extremities. EKG was within normal limits and 2-D echo pending at this time. Patient was admitted under observation for asthma exacerbation and possible pneumonia. Patient will require more than 2 day hospitalization given patient's significant shortness of breath. Patient also with some extensive abdominal protuberance most likely ascites is patient has cirrhosis but has not been managed in the outpatient setting. Will consult GI and appreciate input and recommendations. 12/23/2022 Patient seen and evaluated in follow-up this morning currently sitting up at the side of the bed maintained on room air reports significant improvement in shortness of breath. Underwent CT chest yesterday showing pleural effusion, worse on the right and planning for possible thoracentesis today. GI following as well and patient continues to have abdominal distention that is tympanic would recommend obtaining an ultrasound of the abdomen for possible paracentesis. Patient being started on Aldactone and currently maintained on IV Lasix twice daily although kidney functions worsening and will consult and appreciate input and recommendations from nephrology. Patient is continued on IV steroids along with breathing inhalational treatments and will continue. Recommend titrating steroids in the next day or so to oral. Patient is afebrile with no reported chest pain or palpitations noted. Patient to continue on renal diet with low potassium and also fluid restrictions. Review of systems: Constitutional: No reports of fatigue, fever, or chills Cardiovascular: No reports of chest pain or palpitations Respiratory: reports of improvements in shortness of breath GI: No reports of nausea, vomiting, reports continuing to have diarrhea : No reports of dysuria or retention Neurovascular: No reports of weakness or numbness, reports bilateral lower extremity swelling All medications have been reviewed PHYSICAL EXAMINATION: GENERAL: The patient is alert and oriented x4, Well developed, well nourished. Obese HEENT: Pupils are round and equally reacting to light. EOMI. no scleral icterus. No conjunctival pallor. Normocephalic, atraumatic. No pharyngeal erythema. No thyromegaly. CARDIOVASCULAR: S1 and S2 muffled PULMONARY: diminished breath sounds bilaterally more so on the right with some faint expiratory wheezing and coarse rhonchi noted. Significant improvement in wheezing ABDOMEN: soft. Nontender on exam. obese. distended, normoactive bowel sounds. No palpable organomegaly. MUSCULOSKELETAL: No joint swelling or deformity. EXTREMITIES: No cyanosis, clubbing, 2+ pedal edema. NEUROLOGICAL: Gross neurological examination did not reveal any focal deficits. SKIN: No rashes. Assessment: Shortness of breath with acute hypoxic respiratory failure multifactorial, secondary to chronic obstructive pulmonary disease, acute exacerbation as well as bilateral pleural effusions Status post right-sided thoracentesis for right-sided pleural effusion with approximately 1600 mL's removed and sent for analysis Left upper lobe spiculated 1.2 cm nodular density will need outpatient PET/CT for further evaluation History of asthma Concerns for Right lower lobe infiltrate, community-acquired, ruled out suspicion is low improved calcitonin is 0.09 Continued ongoing nicotine dependence Hypertension history Cirrhosis, most likely alcoholic from previous abuse, quit one year ago in February History of alcohol abuse Thrombocytopenia, secondary to above Obesity with a BMI of 36.8 GI prophylaxis DVT prophylaxis Full code Plan: Patient was placed on empiric Antibiotics and procalcitonin was normal at 0.09 and pulmonary following head CT of the chest which showed pleural effusions, pneumonia less likely, concern for COPD exacerbation as well as bilateral pleural effusions more so on the right and is status post thoracentesis about 1.6 L removed and sent for analysis interventional radiology consulted for possible paracentesis with GI following Patient is continued on IV Lasix twice daily and will transition to once daily as kidney functions trending up and will consult and appreciate input and recommendations from nephrology as patient continues with significant overload. We'll continue fluid restrictions of 1500 mL daily as well 2-D echo shows EF is approximately 55-60% with mild mitral regurgitation along with aortic valve calcification without significant aortic stenosis with mild tricuspid regurgitation and left pleural effusion noted Patient is continued on steroids and breathing treatments and will continue. Patient currently on room air denies worsening shortness of breath and reports some improvement in shortness of breath Will follow-up on repeat labs in a.m. Encouraged complete smoking cessation and will order nicotine patch if needed The impression and plan of care has been dictated by Loree Mayorga, nurse practitioner as directed. Dr. Brice MD I have performed a history and examination and MDM of this patient, discussed the same with the dictator, and agree with the dictator's assessment and plan as written ,documented as a scribe. Based on total visit time, I have performed more than 50% of the visit. Any additional findings or plans will be noted. Objective - Vital Signs Vital signs: Vital Signs Temp 97.7 F 12/23/22 07:50 Pulse 104 H 12/23/22 12:55 Resp 16 12/23/22 07:50 BP 104/50 12/23/22 07:50 Pulse Ox 92 L 12/23/22 08:54 FiO2 Intake & Output 12/22/22 12/23/22 12/23/22 18:59 06:59 18:59 Intake Total 464 Balance 464 Intake: Intake, IV Titration 50 Amount cefTRIAXone 2 gm In 50 Sodium Chloride 0.9% 50 ml @ 100 mls/hr IVPB Q24HR MARGIE Rx#:[id number] Oral 414 Other: Voiding Method Toilet Toilet # Voids 2 3 - Labs CBC & Chem 7: 12/23/22 05:46 12/23/22 05:46 Labs: Abnormal Lab Results - Last 24 Hours (Table) 12/23/22 12/23/22 Range/Units 05:46 05:46 WBC 10.39 H (4.50-10.00) X 10*3/uL RBC 2.50 L (4.40-5.60) X 10*6/uL Hgb 8.1 L (13.0-17.0) d/dL Hct 24.7 L (39.6-50.0) % MCV 98.8 H (80.0-97.0) FL MCH 32.4 H (27.0-32.0) pg RDW 16.4 H (11.5-14.5) % Plt Count 87 L (140-440) X 10*3/uL Neutrophils # 8.90 H (1.80-7.70) X 10*3/uL Lymphocytes # 0.78 L (0.90-5.00) X 10*3/uL Eosinophils # 0 L (0.04-0.35) X 10*3/uL Macrocytosis (manual) 2+ A Acanthocytes (Spur) 2+ A Sodium 134 L (135-145) mmol/L Carbon Dioxide 21.5 L (21.6-31.8) mmol/L BUN 35.7 H (9.0-27.0) mg/dL Creatinine 1.6 H (0.6-1.5) mg/dL Est GFR (CKD-EPI) 46 L (>=60) BUN/Creatinine Ratio 22.31 H (12.00-20.00) Ratio Glucose 127 H (70-110) mg/dL Calcium 8.5 L (8.7-10.3) mg/dL Microbiology - Last 24 Hours (Table) 12/21/22 18:45 Blood Culture - Preliminary Blood 12/21/22 19:00 Blood Culture - Preliminary Blood
[2022-12-23] MEDS: AZITHROMYCIN 500 MG TAB PO SCH (15:37)
--- NOTE | 2022-12-23 16:36 | P.CONS ---
History of Present Illness - Reason for Consult Consult date: 12/23/22 Cirrhosis Requesting physician: Loree Mayorga - Chief Complaint Shortness of breath - History of Present Illness This pleasant 67-year-old male who presented to the emergency department with complaints of shortness of breath. He has a past medical history including asth ma, nicotine use, and alcoholic liver cirrhosis. Patient resides half the year in [place] and half the year in [place]. Apparently patient was diagnosed with urosepsis of the liver in May of this year in [place]. He was started on diuretics but his states that he said it wasn't working so he stopped taking them once he moved back to [place]. He has not established with PCP or any gastroenterology here in [place]. Patient states that he's been having lower extremity swelling as well as abdominal distention for the last several months. Patient has long-standing history of alcoholism and heavy alcohol use. He states he quit drinking about one year ago when his doctor was concerned that he had some kidney issues and they were working him up for possible kidney cancer. His however says that he still has occasional drinks. He states that that was all negative. Gastroenterology was consulted for cirrhosis of the liver. Labs WBC 10.3 hemoglobin 8.1 platelet count 87,000 INR 1.2 sodium 134 potassium 5.1 BUN 35.7 creatinine 1.6 total bilirubin 4.0 AST 34 ALT [address] with contrast with findings of moderate to large right pleural effusion with associated atelectasis, left upper lobe spiculated 1.2 cm nodular density. PET/CT is recommended for further evaluation. Findings consistent with hepatic cirrhosis with portal hypertension including splenomegaly at least moderate ascites and collateral vessels. Review of Systems REVIEW OF SYSTEMS: CARDIOPULMONARY: No chest pain. Reported shortness of breath. Lower extremity edema. Gastrointestinal: No abdominal pain. Patient does report abdominal distention for the last few months duration. No nausea or vomiting. No hematemesis, coffee-ground emesis. No rectal bleeding, or melena. GENITOURINARY: No dysuria or hematuria. MUSCULOSKELETAL: Reports normal range of motion., Joint pain. SKIN: No rashes. No jaundice. ENDOCRINE: No chills, fevers. No excessive weight gain or loss. No polydipsia or polyuria. PSYCHIATRIC: Unremarkable. NEUROLOGY: No change in mental status. Denies dizziness, headache. ENT: Vision unremarkable. CONSTITUTIONAL: No recent weight loss. No fever, chills, night sweats. Past Medical History Past Medical History: Asthma Additional Past Medical History / Comment(s): Cirrhosis and renal issues History of Any Multi-Drug Resistant Organisms: None Reported Past Surgical History: No Surgical Hx Reported Smoking Status: Current some day smoker Past Alcohol Use History: None Reported, Abuse Past Drug Use History: None Reported Medications and Allergies Home Medications Medication Instructions Recorded Confirmed Type Cholecalciferol [Vitamin D3 (125 125 mcg PO DAILY 12/21/22 12/21/22 History Mcg = 5000 Iu)] Saw [place] 500 mg PO DAILY 12/21/22 12/21/22 History Super B Complex 1 cap PO DAILY 12/21/22 12/21/22 History Turmeric Root Extract [Turmeric] 500 mg PO DAILY 12/21/22 12/21/22 History lisinopriL [Zestril] 5 mg PO DAILY 12/21/22 12/21/22 History Allergies Allergy/AdvReac Type Severity Reaction Status Date / Time pollen extracts Allergy Dyspnea Verified 12/21/22 18:39 strawberry Allergy Unknown Verified 12/21/22 18:39 Physical Exam Vitals: Vital Signs Temp Pulse Pulse Pulse Resp BP Pulse Ox 12/23/22 02:05 98.6 F 93 14 127/75 94 L 12/22/22 19:50 98 F 111 H 16 115/60 92 L 12/22/22 18:23 104 H 12/22/22 18:13 105 H 12/22/22 15:25 113 H 12/22/22 15:13 110 H 12/22/22 15:00 97.7 F 106 H 18 114/68 94 L 12/22/22 11:23 92 12/22/22 11:13 96 Intake and Output 12/22/22 12/23/22 12/23/22 22:59 06:59 14:59 Intake Total 296 Balance 296 Intake: Oral 296 Other: Voiding Method Toilet # Voids 3 2 General appearance: The patient is alert, oriented, appears in no acute distress. Obese. HET: Head is normocephalic and atraumatic. Conjunctiva pink. Sclera icteric. Neck: Supple without lymphadenopathy. Trachea midline. Heart: S1 S2. Regular rate and rhythm. Lungs: Clear to auscultation. Abdomen: Soft, nontender, hepatomegaly, distended with ascites. No guarding or rigidity. Skin: No rashes. Jaundice. Extremities: Normal skin color and turgor. Lower extremity edema bilaterally. Neurological: No focal deficits. Alert and oriented x3. Results CBC & Chem 7: 12/23/22 05:46 12/23/22 05:46 Labs: Microbiology - Last 24 Hours (Table) 12/21/22 18:45 Blood Culture - Preliminary Blood 12/21/22 19:00 Blood Culture - Preliminary Blood Assessment and Plan (1) Alcoholic cirrhosis of liver with ascites Narrative/Plan: 67-year-old male with long-standing history of alcohol abuse and alcoholic dependence came in with shortness of breath and lower extremity swelling as well as abdominal distention. Patient recently diagnosed with cirrhosis of the liver back in May in [place]. Patient resides part-time in [place] part- time in [place]. He has no established PCP in [place]. Has not followed with any servomechanism designer or epic prelude analyst. He was prescribed initially diuretics when he was in [place] however he stopped taking them. Patient presented with shortness of breath with right pleural effusion. CT chest shows cirrhotic liver with portal hypertension and ascites. Will plan for paracentesis with fluid studies. Discussed with patient and the importance of complete alcohol abstinence. Can follow-up on discharge however patient does also have a appointment with servomechanism designer/liver specialist in [place] 02/17/2023. Current Visit: Yes Status: Acute Code(s): K70.31 - ALCOHOLIC CIRRHOSIS OF LIVER WITH ASCITES SNOMED Code(s): 016516970 (2) Pleural effusion Current Visit: Yes Status: Acute Code(s): J90 - PLEURAL EFFUSION, NOT ELSEWHERE CLASSIFIED SNOMED Code(s): 55051983 (3) History of alcohol abuse Current Visit: Yes Status: Acute Code(s): F10.11 - ALCOHOL ABUSE, IN REMISSION SNOMED Code(s): 534714947 Plan: 1. Continue symptomatic and supportive care 2. Low sodium diet 3. Consult to interventional radiology for therapeutic paracentesis with fluid studies 4. Continue Lasix, recommend discharge with 40 mg Lasix daily 5. Aldactone 100 mg daily added 6. Alcohol abstinence 7. Instructed patient to keep appointment as scheduled with liver specialist in [place] on 02/17/2023 8. Patient to follow-up with gastroenterology to establish one to 2 weeks. Thank you for this consultation, we'll continue to follow. Dr. Jovi Martinez I agree with the dictator's note, documented as a scribe by Sammie Lopez.
[2022-12-24] MEDS: methylPREDNISolone SOD SUCCI 40 MG/ML 1 ML VIAL IV SCH ×3 (00:52→16:21)
[2022-12-24 08:14] LABS: Appearance,BF Bloody (Clear)
[2022-12-24] MEDS: SYMBICORT 160-4.5 MCG INHALER INHALATION SCH ×2 (08:21→21:00)
[2022-12-24] MEDS: IPRATROPIUM-ALBUTEROL 3 ML NEB INHALATION SCH ×4 (08:21→20:59)
[2022-12-24] MEDS: FOLIC ACID-VIT B COMPLEX-VIT C 1 CAP PO SCH (08:58)
[2022-12-24] MEDS: CHOLECALCIFEROL 125 MCG (5000 IU) TABLET PO SCH (08:58)
[2022-12-24] MEDS: SPIRONOLACTONE 25 MG TAB PO SCH (08:59)
[2022-12-24] MEDS: FUROSEMIDE 10 MG/ML 2 ML VIAL IV SCH (08:59)
--- NOTE | 2022-12-24 11:52 | US ---
Ultrasound-guided paracentesis. DATE OF EXAM: 12/24/2022 CLINICAL HISTORY: Ascites The procedure was discussed with the patient. The risks, complications, benefits, and alternatives we re discussed and any questions were answered. Informed consent was obtained. The patient was placed s upine on the ultrasound table and prepped and draped in the usual sterile fashion. All elements of maximal barrier technique were utilized. Under ultrasound guidance, access into the right lower quadrant was obtained, via the paracentesis catheter system and direct ultrasound guidanc e. Approximately 6.9 liters of straw-colored fluid was removed. The patient was stable throughout the pr ocedure and remained stable upon discharge from Department of Radiology. IMPRESSION: Successful paracentesis under ultrasound guidance.
[2022-12-24] MEDS: ALBUMIN HUMAN 25% 50 ML in EMPTY BAG 1 BAG IVPB SCH ×4 (12:27→14:00)
[2022-12-24 14:04] LABS: BUN/Creat Ratio 27.19 Ratio (12.00-20.00); Blood Urea Nitrogen 43.5 mg/dL (9.0-27.0); Carbon Dioxide 22.9 mmol/L (21.6-31.8); Chloride 104 mmol/L (96-109); Glucose 109 mg/dL (70-110); Potassium 4.9 mmol/L (3.5-5.5); Sodium 137 mmol/L (135-145)
[2022-12-24 14:13] LABS: Acanthocytes 2+; Basophils # (A) 0.01 X 10*3/uL (0.00-0.10); Basophils % (A) 0.1 %; Eosinophils # (A) 0 X 10*3/uL (0.04-0.35); Eosinophils % (A) 0 %; HGB 9.2 d/dL (13.0-17.0); Lymphocytes % (A) 6.7 %; MCH 32.2 pg (27.0-32.0); MCHC 31.7 d/dL (32.0-37.0); MCV 101.4 FL (80.0-97.0); Macrocytosis (M) 2+; Mean Platelet Volume 10.7 FL (9.5-12.2); Monocytes # (A) 1.44 X 10*3/uL (0.20-1.00); NRBC Per 100 WBC 0 X 10*3/uL (0.00-0.01); Neutrophils # (A) 15.12 X 10*3/uL (1.80-7.70); Neutrophils % (A) 83.8 %; Platelet Count 123 X 10*3/uL (140-440); Polychromasia 2+; RBC 2.86 X 10*6/uL (4.40-5.60); WBC 18.03 X 10*3/uL (4.50-10.00)
--- NOTE | 2022-12-24 14:25 | P.NPCON ---
History of Present Illness - Reason for Consult acute renal failure - History of Present Illness Patient is a 67-year-old male with previous history of asthma who is admitted to the hospital with complaints of shortness of breath. Patient has also had worsening swelling in his legs. Recently diagnosed with liver cirrhosis. Status post paracentesis done today with 6.9 L of fluid removed. Serum creatinine was 1.1 mg/dL on admission and increased to 1.6 today. Blood pressure noted to be on the lower side with systolic reading of 97 mmHg on 12/21/2022. Currently maintained on low-dose IV Lasix. Patient was on Zestril which is now discontinued. Patient states she has been voiding. Review of Systems As per HPI Past Medical History Past Medical History: Asthma Additional Past Medical History / Comment(s): Cirrhosis and renal issues History of Any Multi-Drug Resistant Organisms: None Reported Past Surgical History: No Surgical Hx Reported Smoking Status: Current some day smoker Past Alcohol Use History: None Reported, Abuse Past Drug Use History: None Reported Medications and Allergies Home Medications Medication Instructions Recorded Confirmed Type Cholecalciferol [Vitamin D3 (125 125 mcg PO DAILY 12/21/22 12/21/22 History Mcg = 5000 Iu)] Saw [place] 500 mg PO DAILY 12/21/22 12/21/22 History Super B Complex 1 cap PO DAILY 12/21/22 12/21/22 History Turmeric Root Extract [Turmeric] 500 mg PO DAILY 12/21/22 12/21/22 History lisinopriL [Zestril] 5 mg PO DAILY 12/21/22 12/21/22 History Allergies Allergy/AdvReac Type Severity Reaction Status Date / Time pollen extracts Allergy Dyspnea Verified 12/21/22 18:39 strawberry Allergy Unknown Verified 12/21/22 18:39 Physical Exam Vitals: Vital Signs Temp Pulse Pulse Resp BP Pulse Ox 12/24/22 11:53 98 12/24/22 11:45 98 12/24/22 11:40 95 16 128/61 95 12/24/22 11:08 93 16 125/58 94 L 12/24/22 10:35 101 H 16 140/67 95 12/24/22 08:36 104 H 12/24/22 08:23 100 94 L 12/24/22 07:00 98.4 F 104 H 18 124/62 93 L 12/24/22 02:00 97.8 F 77 16 115/68 99 12/23/22 20:00 16 12/23/22 19:55 100 12/23/22 19:44 104 H 12/23/22 19:26 97.7 F 88 16 111/57 94 L 12/23/22 16:08 94 L 12/23/22 14:57 97.5 F L 110 H 16 115/51 94 L Intake and Output 12/23/22 12/24/22 12/24/22 22:59 06:59 14:59 Intake Total 188 Balance 188 Intake: Oral 188 Other: # Voids 2 2 Patient is awake, comfortable, alert oriented 3. No acute distress. Examination of the heart S1 and S2 Examination of the lungs bilateral breath sounds are heard Abdomen is soft nontender Examination lower extremity shows edema 2+ bilaterally with chronic skin changes CERTIFIED CONTROL SYSTEMS TECHNICIAN exam grossly intact Results - Lab Results Most recent lab results Calcium 9.0 mg/dL (8.7-10.3) 12/24/22 07:38 Magnesium 2.1 mg/dL (1.5-2.4) 12/23/22 05:46 12/24/22 07:38 12/24/22 07:38 Assessment and Plan Assessment: 1. Acute kidney injury, nonoliguric ATN secondary to low blood pressure in the setting of use of AMY inhibitor's. Lisinopril is currently discontinued. Continue with IV Lasix at current dose. IV albumin to be given post paracentesis 2. Liver cirrhosis and ascites with portal hypertension status post paracentesis today of 6.9 L 3. Alcoholic liver disease 4. Anemia rule out iron deficiency 5. Right lower lobe infiltrate, possible pneumonia 6. COPD exacerbation 7. Thrombocytopenia secondary to alcoholic liver disease Plan: Continue with current dose of Lasix Continue off of AMY inhibitor's Continue off of IV fluids Repeat labs in a.m. IV albumin post paracentesis today. Check UA Check iron profile Thank you for the consultation. We will continue to follow the patient with you during his hospitalization.
--- NOTE | 2022-12-24 15:01 | P.PN ---
Subjective Progress Note Date: 12/24/22 I am seeing this patient in new consultation today 12/22/2022 for suspected right lower lobe community-acquired pneumonia. Patient is a 67-year-old white male with past medical history significant for asthma, alcoholism, alcoholic liver disease, and is a current tobacco smoker. Patient came to the emergency room yesterday evening complaining of shortness of breath and a nonproductive cough. He denies any fevers or chills. Denies sick contacts. Patient has had progressive ongoing shortness of breath since June when he came back from [place]. He does have a history of asthma, and uses a when necessary albuterol inhaler. This has not been helping. He continues to smoke approximately 5-6 ci garettes per day. He does have a distended abdomen and lower extremity edema. Denies any chest pain, palpitations, syncope, orthopnea. Denies any history of heart failure. Patient is currently sitting up in bed, on 2 L/m nasal cannula, in no acute distress. Chest x-ray on arrival shows a right lower lobe infiltrate and consolidation with a small right pleural effusion. CBC on arrival shows a WBC count of 7.7, hemoglobin 10.8, hematocrit 31.9, platelets 109. BMP on arrival was unremarkable. NT proBNP was low at 98. Troponin less than 0.012. LFTs are non-elevated, total bilirubin 4. Patient appears nontoxic, and is hemodynamically stable at this time. On today's evaluation of a 2022, the patient continues to be short of breath. Limited improvement since yesterday the patient is on accommodation of Rocephin and Zithromax. CAT scan of the chest was done yesterday and the patient was found to have a large right-sided pleural effusion along with compressive atelectasis in the right lung base. There is also nonspecific left upper lobe density measuring 1.2 cm in size. The patient has underlying liver cirrhosis with portal hypertension and splenomegaly and presence of paraesophageal collaterals and gastrohepatic lateral vessels all consistent with liver cirrhosis. He continues to have lower extremity edema. He does have moderate volume of ascites also identified. The echo was also done and the patient was found to have a normal LV function, no significant valvular abnormalities. The echoes at 10 hemoglobin of 8.1 and a platelet count of 87. Sodium is at 134, BUN is at 35 with a creatinine of 1.6. The pro-calcitonin level is at 0.09. He does have significant edema lower extremity bilaterally and the patient remains on IV Lasix. 12/24/2022, the patient is post thoracentesis and the patient is also post paracentesis. A total of 1.6 L of fluid was aspirated from the right lung and the patient also had a 6.9 L of fluid aspirated from the abdomen/ascitic fluid. The pleural fluid is a candidate. Meanwhile the patient was still maintained on diuretics. The creatinine is up to 1.6 with a BUN of 43 and a sodium level is at 137. The white cell count of 18 with a hemoglobin 9.2. The patient remains on IV Rocephin. The patient remains on bronchodilators and steroids. The patient was also seen by nephrology regarding the renal failure. The patientto Lasix 20 mg IV every 24 hours. He was also started on Aldactone. Objective - Vital Signs Vital signs: Vital Signs Temp 97.5 F L 12/24/22 13:52 Pulse 103 H 12/24/22 13:52 Resp 18 12/24/22 13:52 BP 122/47 12/24/22 13:52 Pulse Ox 94 L 12/24/22 13:52 FiO2 Intake & Output 12/23/22 12/24/22 12/24/22 18:59 06:59 18:59 Intake Total 188 Balance 188 Intake: Oral 188 Other: Voiding Method Toilet # Voids 3 2 3 # Bowel Movements 1 - Exam GENERAL EXAM: Alert, is 67-year-old white male appearing stated age, comfortable in no apparent distress. The patient is currently on room air oxygen with a pulse ox of 94% HEAD: Normocephalic and atraumatic EYES: Normal reaction of pupils, equal size. Nonicteric sclera NOSE: Clear with pink turbinates. THROAT: No erythema or exudates. NECK: No masses, no JVD. CHEST: No chest wall deformity. LUNGS: Equal air entry with expiratory wheezes heard throughout. There n are diminished lung sounds at the right base, along with inspiratory crackles at the left base. on 2 L/m nasal cannula. No conversational dyspnea or accessory muscle use.. CVS: S1 and S2 normal with no audible murmur, regular rhythm. No extra heart sounds. ABDOMEN: Abdomen is quite distended, active bowel sounds, no guarding or rigidity. SPINE: No scoliosis or deformity SKIN: No rashes CENTRAL NERVOUS SYSTEM: No focal deficits, tone is normal in all 4 extremities. EXTREMITIES: There 3+ bilateral lower extremity pitting edema. No clubbing, or cyanosis. Peripheral pulses are intact. - Labs CBC & Chem 7: 12/24/22 07:38 08 07:38 Labs: Abnormal Lab Results - Last 24 Hours (Table) 12/23/22 12/24/22 12/24/22 Range/Units 12:45 07:38 07:38 WBC 18.03 H (4.50-10.00) X 10*3/uL RBC 2.86 L (4.40-5.60) X 10*6/uL Hgb 9.2 L (13.0-17.0) d/dL Hct 29.0 L (39.6-50.0) % MCV 101.4 H (80.0-97.0) FL MCH 32.2 H (27.0-32.0) pg MCHC 31.7 L (32.0-37.0) d/dL RDW 17.0 H (11.5-14.5) % Plt Count 123 L (140-440) X 10*3/uL Neutrophils # 15.12 H (1.80-7.70) X 10*3/uL Monocytes # 1.44 H (0.20-1.00) X 10*3/uL Eosinophils # 0 L (0.04-0.35) X 10*3/uL Polychromasia 2+ A Macrocytosis (manual) 2+ A Acanthocytes (Spur) 2+ A BUN 43.5 H (9.0-27.0) mg/dL Creatinine 1.6 H (0.6-1.5) mg/dL Est GFR (CKD-EPI) 46 L (>=60) BUN/Creatinine Ratio 27.19 H (12.00-20.00) Ratio Fluid Appearance Bloody A (Clear) Microbiology - Last 24 Hours (Table) 12/21/22 18:45 Blood Culture - Preliminary Blood 12/21/22 19:00 Blood Culture - Preliminary Blood Assessment and Plan Assessment: Acute hypoxemic respiratory failure secondary to suspected right lower lobe community-acquired pneumonia. CAT scan of the chest confirms presence of m oderate to large size right-sided pleural effusion. The patient underwent thoracentesis with evacuation of 1.6 L of fluid, times a day probably related to liver cirrhosis and the patient is currently on room air oxygen. Chronic liver cirrhosis alcoholic in nature with evidence of splenomegaly, po rtal hypertension and ascites and lower extremity edema, a total of 7 L of fluid was aspirated also from the abdomen/ascitic fluid Acute kidney injury and the patient is currently on Lasix and Aldactone. Nephrology is on the case. Consider ATN nonoliguric in a setting of low blood pressure and use of a centimeters. The AMY inhibitor was discontinued and the patient was kept on IV Lasix and the patient was also given IV albumin post paracentesis. Shortness of breath secondary to above Acute asthma exacerbation, secondary to above Bilateral lower extremity edema Essential hypertension History of alcoholism Thrombocytopenia, likely related to above, secondary to chronic liver disease Chronic ongoing nicotine dependence Nonspecific left upper lobe pulmonary nodule measuring around 1 cm in size, subpleural, likely inflammatory Plan Right-sided thoracentesis was done and a total of 1.6 L of fluid was aspirated. Awaiting fluid analysis. The fluid itself was somewhat bloody dark red in color. A total of 7 L of ascitic fluid was aspirated and the patient was replaced IV albumin Stop the AMY inhibitor Give IV albumin Continue IV Lasix and Aldactone Monitor renal function Patient tolerated the procedures well and the patient is currently on room air oxygen Echocardiogram was noted and the patient has a preserved LV function Continue antibiotics Pneumonia is doubtful. Pro-calcitonin level is low We'll continue to follow
--- NOTE | 2022-12-24 15:09 | P.PN ---
Subjective Progress Note Date: 12/24/22 Principal diagnosis: Liver cirrhosis, ascites This pleasant 67-year-old male who presented to the emergency department with complaints of shortness of breath. He has a past medical history including asthma, nicotine use, and alcoholic liver cirrhosis. Patient resides half the year in [place] and half the year in [place]. Apparently patient was diagnosed with urosepsis of the liver in May of this year in [place]. He was started on diuretics but his states that he said it wasn't working so he stopped taking them once he moved back to [place]. He has not established with PCP or any gastroenterology here in [place]. Patient states that he's been having lower extremity swelling as well as abdominal distention for the last several months. Patient has long-standing history of alcoholism and heavy alcohol use. He states he quit drinking about one year ago when his doctor was concerned that he had some kidney issues and they were working him up for possible kidney cancer. His however says that he still has occasional drinks. He states that that was all negative. Gastroenterology was consulted for cirrhosis of the liver. Labs WBC 10.3 hemoglobin 8.1 platelet count 87,000 INR 1.2 sodium 134 potassium 5.1 BUN 35.7 creatinine 1.6 total bilirubin 4.0 AST 34 ALT [address] with contrast with findings of moderate to large right pleural effusion with associated atelectasis, left upper lobe spiculated 1.2 cm nodular density. PET/CT is recommended for further evaluation. Findings consistent with hepatic cirrhosis with portal hypertension including splenomegaly at least moderate ascites and collateral vessels. 12/24/2022 Patient seen and examined today as a follow-up. He has no acute changes through the night. He has no complaints at this time. Denies any abdominal pain, nausea, vomiting, chest pain or shortness of breath. Scheduled to undergo paracentesis. Objective - Vital Signs Vital signs: Vital Signs Temp 98.4 F 12/24/22 07:00 Pulse 104 H 12/24/22 08:36 Resp 18 12/24/22 07:00 BP 124/62 12/24/22 07:00 Pulse Ox 94 L 12/24/22 08:23 FiO2 Intake & Output 12/23/22 12/24/22 12/24/22 18:59 06:59 18:59 Other: Voiding Method Toilet # Voids 3 2 - Exam General appearance: The patient is alert, oriented, appears in no acute distress. HET: Head is normocephalic and atraumatic. Conjunctiva pink. Sclera anicteric. Neck: Supple without lymphadenopathy. Abdomen: Soft, nontender, abdominal ascites. No guarding or rigidity. Extremities: Normal skin color and turgor. Bilateral lower extremity edema. Skin: No rashes, jaundice. Neurological: No focal deficits. Alert and oriented. - Labs CBC & Chem 7: 12/24/22 07:38 12/24/22 07:38 Labs: Abnormal Lab Results - Last 24 Hours (Table) 12/23/22 12/23/22 Range/Units 05:46 12:45 WBC 10.39 H (4.50-10.00) X 10*3/uL RBC 2.50 L (4.40-5.60) X 10*6/uL Hgb 8.1 L (13.0-17.0) d/dL Hct 24.7 L (39.6-50.0) % MCV 98.8 H (80.0-97.0) FL MCH 32.4 H (27.0-32.0) pg RDW 16.4 H (11.5-14.5) % Plt Count 87 L (140-440) X 10*3/uL Neutrophils # 8.90 H (1.80-7.70) X 10*3/uL Lymphocytes # 0.78 L (0.90-5.00) X 10*3/uL Eosinophils # 0 L (0.04-0.35) X 10*3/uL Macrocytosis (manual) 2+ A Acanthocytes (Spur) 2+ A Fluid Appearance Bloody A (Clear) Microbiology - Last 24 Hours (Table) 12/21/22 18:45 Blood Culture - Preliminary Blood 12/21/22 19:00 Blood Culture - Preliminary Blood Assessment and Plan (1) Alcoholic cirrhosis of liver with ascites Narrative/Plan: 67-year-old male with long-standing history of alcohol abuse and alcoholic dependence came in with shortness of breath and lower extremity swelling as well as abdominal distention. Patient recently diagnosed with cirrhosis of the liver back in May in [place]. Patient resides part-time in [place] part-time in [place]. He has no established PCP in [place]. Has not followed with any accredited legal secretary or wire mesh knitter. He was prescribed initially diuretics when he was in [place] however he stopped taking them. Patient presented with shortness of breath with right pleural effusion. CT chest shows cirrhotic liver with portal hypertension and ascites. Will plan for paracentesis with fluid studies. Discussed with patient and the importance of complete alcohol abstinence. Can follow-up on discharge however patient does also have a appointment with accredited legal secretary/liver specialist in [place] 02/17/2023. She underwent paracentesis today with 6.9 L of fluid removed and albumin given Current Visit: Yes Status: Acute Code(s): K70.31 - ALCOHOLIC CIRRHOSIS OF LIVER WITH ASCITES SNOMED Code(s): 727649047 (2) Pleural effusion Current Visit: Yes Status: Acute Code(s): J90 - PLEURAL EFFUSION, NOT ELSEWHERE CLASSIFIED SNOMED Code(s): 43681655 (3) History of alcohol abuse Current Visit: Yes Status: Acute Code(s): F10.11 - ALCOHOL ABUSE, IN REMISS ION SNOMED Code(s): 290008134 Plan: 1. Continue symptomatic and supportive care 2. Low sodium diet 3. Consult to interventional radiology for therapeutic paracentesis with fluid studies 4. Continue Lasix, recommend discharge with 40 mg Lasix daily 5. Aldactone 100 mg daily added 6. Alcohol abstinence 7. Instructed patient to keep appointment as scheduled with liver specialist in [place] on 02/17/2023 8. Patient to follow-up with gastroenterology to establish one to 2 weeks. Thank you for this consultation, we will sign off at this time. Dr. Jovi Maritnez I agree with the dictator's note, documented as a scribe by Sammie Lopez.
--- NOTE | 2022-12-24 15:28 | US ---
EXAMINATION TYPE: US kidneys/renal and bladder DATE OF EXAM: 12/24/2022 COMPARISON: 12/23/2022 CLINICAL INDICATION: Male, 67 years old with history of monalisa; MONALISA EXAM MEASUREMENTS: Right Kidney: 10.0 x 4.3 x 4.7 cm Left Kidney: 10.7 x 3.8 x 4.9 cm Right Kidney: No hydronephrosis or masses seen Left Kidney: No hydronephrosis or masses seen Bladder: wnl There is no evidence for hydronephrosis at this point in time. No nephrolithiasis is seen. No kaylie s are identified. The urinary bladder is anechoic. Bilateral ureteral jets are seen. IMPRESSION: No evidence for obstructive uropathy. Cortical medullary differentiation is maintained.
[2022-12-24 17:06] LABS: Appearance,Urine Clear (Clear); Bilirubin,Urine Negative (Negative); Blood,Urine Negative (Negative); Color,Urine Yellow; Glucose,Urine (UA) Negative (Negative); Ketones,Urine Negative (Negative); Leukocyte Esterase,Urine Negative (Negative); Nitrite,Urine Negative (Negative); Protein,Urine Negative (Negative); Urobilinogen,Urine <2.0 mg/dL (<2.0)
[2022-12-24 21:03] LABS: Cholesterol,BF Source Pleural fluid; Cholesterol,Body Fluid 43 mg/dL; Glucose, BF Source Pleural fluid; Glucose, Body Fluid 127 mg/dL; LDH, Body Fluid Source Pleural fluid; T. Protein, Body Fluid Source Pleural fluid; Total Protein, Body Fluid 2190 mg/dL
[2022-12-25 01:20] LABS: % Iron Saturation 9.12 (15.00-50.00)
[2022-12-25] MEDS: methylPREDNISolone SOD SUCCI 40 MG/ML 1 ML VIAL IV SCH (01:44)
[2022-12-25 02:56] VITALS: RESP 16
--- NOTE | 2022-12-25 05:32 | P.PN ---
Subjective Progress Note Date: 12/24/22 This is a 67-year-old male who presented to the emergency department with increasing shortness of breath. Per family at the bedside patient has been having progressive shortness of breath that has been ongoing over the last few months although progressively getting worse over the last few days requiring patient is currently maintained on 3 L via nasal cannula and does not normally wear oxygen outpatient. Patient reports he lives in [place] most of the time and has a primary care provider there and currently returns to [place] sometime in January or February. Patient reports to the past medical history of asthma, cirrhosis of the liver with some kidney issues, former alcoholic and quit one ye ar ago, and continue nicotine dependence. Patient denies any other illicit drug use. Patient's at bedside reports he does have an outpatient follow-up appointment to establish with the GI sometime in early February in [place]. In the ER patient was given IV steroids and started on 60 every 6 along with breathing treatments and supplemental oxygen. Chest x-ray showed right lower lobe infiltrate and small effusion to correlate for mild central venous congestion. Patient was started on IV Lasix as well as ceftriaxone and Zithromax. Pulmonary was consulted along with 2-D echo ordered improved calcitonin. Patient with significant lower extremity swelling 2+ pitting and reports no history of heart failure that he is aware of and family at bedside reports he chronically has swelling weakness of the lower extremities. EKG was within normal limits and 2-D echo pending at this time. Patient was admitted under observation for asthma exacerbation and possible pneumonia. Patient will require more than 2 day hospitalization given patient's significant shortness of breath. Patient also with some extensive abdominal protuberance most likely ascites is patient has cirrhosis but has not been managed in the outpatient setting. Will consult GI and appreciate input and recommendations. 12/23/2022 Patient seen and evaluated in follow-up this morning currently sitting up at the side of the bed maintained on room air reports significant improvement in shortness of breath. Underwent CT chest yesterday showing pleural effusion, worse on the right and planning for possible thoracentesis today. GI following as well and patient continues to have abdominal distention that is tympanic would recommend obtaining an ultrasound of the abdomen for possible paracentesis. Patient being started on Aldactone and currently maintained on IV Lasix twice daily although kidney functions worsening and will consult and appreciate input and recommendations from nephrology. Patient is continued on IV steroids along with breathing inhalational treatments and will continue. Recommend titrating steroids in the next day or so to oral. Patient is afebrile with no reported chest pain or palpitations noted. Patient to continue on renal diet with low potassium and also fluid restrictions. 12/24/2022 Patient is seen today status post thoracentesis with pulmonary and GI along with nephrology following. Patient also scheduled to undergo paracentesis with interventional radiology today. Patient is continued on DuoNeb treatments along with IV steroids with minimal wheezing and will transition to prednisone. Patient is continued on IV Lasix with decreased dose of daily as kidney func tions remain at 1.6 with a creatinine. Nephrology consulted and following. Patient is afebrile has weaned to room air oxygen maintaining oxygen saturations above 90% and denies any worsening shortness of breath or chest pains. Patient to continue fluid restrictions as well and encouraged increased activity as tolerated. Review of systems: Constitutional: No reports of fatigue, fever, or chills Cardiovascular: No reports of chest pain or palpitations Respiratory: reports of improvements in shortness of breath GI: No reports of nausea, vomiting, reports loose stools : No reports of dysuria or retention Neurovascular: No reports of weakness or numbness, reports bilateral lower extremity swelling that are showing some improvement All medications have been reviewed PHYSICAL EXAMINATION: GENERAL: The patient is alert and oriented x4, Well developed, well nourished. Obese HEENT: Pupils are round and equally reacting to light. EOMI. no scleral icterus. No conjunctival pallor. Normocephalic, atraumatic. No pharyngeal erythema. No thyromegaly. CARDIOVASCULAR: S1 and S2 muffled PULMONARY: diminished breath sounds bilaterally more so on the right with some faint expiratory wheezing and coarse rhonchi noted. Significant improvement in wheezing ABDOMEN: soft. Nontender on exam. obese. distended, normoactive bowel sounds. No palpable organomegaly. MUSCULOSKELETAL: No joint swelling or deformity. EXTREMITIES: No cyanosis, clubbing, 2+ pedal edema. NEUROLOGICAL: Gross neurological examination did not reveal any focal deficits. SKIN: No rashes. Assessment: Shortness of breath with acute hypoxic respiratory failure multifactorial, secondary to chronic obstructive pulmonary disease, acute exacerbation as well as bilateral pleural effusions Acute kidney injury, acute tubular necrosis secondary to lisinopril which has been discontinued Status post right-sided thoracentesis for right-sided pleural effusion with approximately 1600 mL's removed and sent for analysis Left upper lobe spiculated 1.2 cm nodular density will need outpatient PET/CT for further evaluation History of asthma Concerns for Right lower lobe infiltrate, community-acquired, ruled out susp icion is low improved calcitonin is 0.09 Continued ongoing nicotine dependence Hypertension history Ascites most likely secondary to cirrhosis status post paracentesis of over 6 L removed today Cirrhosis, most likely alcoholic from previous abuse, quit one year ago in February History of alcohol abuse Thrombocytopenia, secondary to above Obesity with a BMI of 36.8 GI prophylaxis DVT prophylaxis Full code Plan: Patient continue on antibiotics empirically per pulmonary and will not require antibiotics on discharge his pro-calcitonin was normal with pneumonia ruled out Patient is status post thoracentesis on the right with 1.6 L removed, sent for analysis Patient is continued on DuoNeb treatments along with IV steroids and wheezing significantly improved we'll transition to oral prednisone Patient was evaluated by interventional radiology underwent paracentesis with over 6 L removed and albumin ordered Nephrology consulted for worsening kidney functions and will continue on IV Lasix daily for another 24 hours with follow-up labs Continue fluid restrictions and renal diet Repeat labs in the a.m. Encouraged increased activity as tolerated Probable discharge in 24 hours The impression and plan of care has been dictated by Loree Mayorga, nurse practitioner as directed. Dr. Brice MD I have performed a history and examination and MDM of this patient, discussed the same with the dictator, and agree with the dictator's assessment and plan as written ,documented as a scribe. Based on total visit time, I have performed more than 50% of the visit. Any additional findings or plans will be noted. Objective - Vital Signs Vital signs: Vital Signs Temp 98.4 F 12/24/22 07:00 Pulse 104 H 12/24/22 08:36 Resp 18 12/24/22 07:00 BP 124/62 12/24/22 07:00 Pulse Ox 94 L 12/24/22 08:23 FiO2 Intake & Output 12/23/22 12/24/22 12/24/22 18:59 06:59 18:59 Intake Total 188 Balance 188 Intake: Oral 188 Other: Voiding Method Toilet # Voids 3 2 - Labs CBC & Chem 7: 12/24/22 07:38 12/24/22 07:38 Labs: Abnormal Lab Results - Last 24 Hours (Table) 12/23/22 12/23/22 Range/Units 05:46 12:45 WBC 10.39 H (4.50-10.00) X 10*3/uL RBC 2.50 L (4.40-5.60) X 10*6/uL Hgb 8.1 L (13.0-17.0) d/dL Hct 24.7 L (39.6-50.0) % MCV 98.8 H (80.0-97.0) FL MCH 32.4 H (27.0-32.0) pg RDW 16.4 H (11.5-14.5) % Plt Count 87 L (140-440) X 10*3/uL Neutrophils # 8.90 H (1.80-7.70) X 10*3/uL Lymphocytes # 0.78 L (0.90-5.00) X 10*3/uL Eosinophils # 0 L (0.04-0.35) X 10*3/uL Macrocytosis (manual) 2+ A Acanthocytes (Spur) 2+ A Fluid Appearance Bloody A (Clear) Microbiology - Last 24 Hours (Table) 12/21/22 18:45 Blood Culture - Preliminary Blood 12/21/22 19:00 Blood Culture - Preliminary Blood
[2022-12-25 06:11] LABS: T. Protein, Body Fluid Source Ascities; Total Protein, Body Fluid 1330 mg/dL
[2022-12-25 06:15] LABS: Appearance,BF Cloudy (Clear)
[2022-12-25] MEDS: IPRATROPIUM-ALBUTEROL 3 ML NEB INHALATION SCH ×2 (08:21→12:14)
[2022-12-25] MEDS: SYMBICORT 160-4.5 MCG INHALER INHALATION SCH (08:21)
[2022-12-25 08:41] VITALS: BP 126/63; TEMP 98.2
[2022-12-25] MEDS: FUROSEMIDE 10 MG/ML 2 ML VIAL IV SCH (08:52)
[2022-12-25] MEDS: SPIRONOLACTONE 25 MG TAB PO SCH (08:52)
[2022-12-25] MEDS: FOLIC ACID-VIT B COMPLEX-VIT C 1 CAP PO SCH (08:52)
[2022-12-25] MEDS: CHOLECALCIFEROL 125 MCG (5000 IU) TABLET PO SCH (08:52)
[2022-12-25] MEDS ORDERED: predniSONE 20 MG TAB PO SCH (09:00)
[2022-12-25 09:14] LABS: Blood Urea Nitrogen 42.7 mg/dL (9.0-27.0); Calcium 9.1 mg/dL (8.7-10.3); Carbon Dioxide 24.4 mmol/L (21.6-31.8); Chloride 107 mmol/L (96-109); Glucose 121 mg/dL (70-110); Potassium 5.5 mmol/L (3.5-5.5); Sodium 138 mmol/L (135-145)
[2022-12-25 10:09] LABS: Basophils # (A) 0 X 10*3/uL (0.00-0.10); Basophils % (A) 0 %; Eosinophils # (A) 0 X 10*3/uL (0.04-0.35); Eosinophils % (A) 0 %; HCT 24.6 % (39.6-50.0); HGB 8.1 d/dL (13.0-17.0); Lymphocytes # (A) 0.65 X 10*3/uL (0.90-5.00); Lymphocytes % (A) 7.6 %; MCH 32.5 pg (27.0-32.0); MCHC 32.9 d/dL (32.0-37.0); MCV 98.8 FL (80.0-97.0); Mean Platelet Volume 10.3 FL (9.5-12.2); Monocytes # (A) 0.53 X 10*3/uL (0.20-1.00); Monocytes % (A) 6.2 %; NRBC Per 100 WBC 0 X 10*3/uL (0.00-0.01); Neutrophils # (A) 7.21 X 10*3/uL (1.80-7.70); Neutrophils % (A) 84.6 %; Platelet Count 79 X 10*3/uL (140-440); RBC 2.49 X 10*6/uL (4.40-5.60); RDW 16.9 % (11.5-14.5); WBC 8.53 X 10*3/uL (4.50-10.00)
[2022-12-25] MEDS ORDERED: FUROSEMIDE 10 MG/ML 4 ML VIAL IV STA (12:06)
--- NOTE | 2022-12-25 12:07 | P.PN ---
Subjective Patient is seen for follow-up for acute kidney injury. He has underlying liver cirrhosis and is status post paracentesis. Currently maintained on IV Lasix 20 mg daily and Aldactone. Serum creatinine improved to 1.4 today. Potassium was elevated at 5.5. No evidence of obstructive uropathy on ultrasound. Objective - Vital Signs Vital signs: Vital Signs Temp 98.2 F 12/25/22 07:00 Pulse 95 12/25/22 08:31 Resp 16 12/25/22 07:00 BP 126/63 12/25/22 07:00 Pulse Ox 94 L 12/25/22 07:00 FiO2 Intake & Output 12/24/22 12/25/22 12/25/22 18:59 06:59 18:59 Intake Total 778 Balance 778 Intake: Oral 778 Other: # Voids 3 2 # Bowel Movements 1 - Exam Patient is awake, comfortable, no acute distress Examination of the heart S1 and S2 Examination the lungs bilateral breath sounds are heard next and abdomen is soft nontender Examination lower extremity shows edema 1+ bilaterally [employer]IST exam grossly intact - Labs CBC & Chem 7: 12/25/22 06:15 12/25/22 06:15 Labs: Abnormal Lab Results - Last 24 Hours (Table) 12/24/22 12/24/22 12/24/22 Range/Units 07:38 07:38 08:43 WBC 18.03 H (4.50-10.00) X 10*3/uL RBC 2.86 L (4.40-5.60) X 10*6/uL Hgb 9.2 L (13.0-17.0) d/dL Hct 29.0 L (39.6-50.0) % MCV 101.4 H (80.0-97.0) FL MCH 32.2 H (27.0-32.0) pg MCHC 31.7 L (32.0-37.0) d/dL RDW 17.0 H (11.5-14.5) % Plt Count 123 L (140-440) X 10*3/uL Neutrophils # 15.12 H (1.80-7.70) X 10*3/uL Lymphocytes # (0.90-5.00) X 10*3/uL Monocytes # 1.44 H (0.20-1.00) X 10*3/uL Eosinophils # 0 L (0.04-0.35) X 10*3/uL Polychromasia 2+ A Macrocytosis (manual) 2+ A Acanthocytes (Spur) 2+ A BUN 43.5 H (9.0-27.0) mg/dL Creatinine 1.6 H (0.6-1.5) mg/dL Est GFR (CKD-EPI) 46 L (>=60) BUN/Creatinine Ratio 27.19 H (12.00-20.00) Ratio Glucose (70-110) mg/dL Iron 25 L (65-175) UG/DL % Saturation 9.12 L (15.00-50.00) Transferrin 196.0 L (204.0-354.0) mg/dL Fluid Appearance (Clear) 12/24/22 12/25/22 12/25/22 Range/Units 11:15 06:15 06:15 WBC (4.50-10.00) X 10*3/uL RBC 2.49 L (4.40-5.60) X 10*6/uL Hgb 8.1 L (13.0-17.0) d/dL Hct 24.6 L (39.6-50.0) % MCV 98.8 H (80.0-97.0) FL MCH 32.5 H (27.0-32.0) pg MCHC (32.0-37.0) d/dL RDW 16.9 H (11.5-14.5) % Plt Count 79 L (140-440) X 10*3/uL Neutrophils # (1.80-7.70) X 10*3/uL Lymphocytes # 0.65 L (0.90-5.00) X 10*3/uL Monocytes # (0.20-1.00) X 10*3/uL Eosinophils # 0 L (0.04-0.35) X 10*3/uL Polychromasia Macrocytosis (manual) Acanthocytes (Spur) BUN 42.7 H (9.0-27.0) mg/dL Creatinine (0.6-1.5) mg/dL Est GFR (CKD-EPI) 54 L (>=60) BUN/Creatinine Ratio 30.50 H (12.00-20.00) Ratio Glucose 121 H (70-110) mg/dL Iron (65-175) UG/DL % Saturation (15.00-50.00) Transferrin (204.0-354.0) mg/dL Fluid Appearance Cloudy A (Clear) Microbiology - Last 24 Hours (Table) 12/23/22 12:45 Gram Stain - Preliminary Pleural Fluid Body Fluid Culture - Preliminary 12/24/22 08:23 Gram Stain - Preliminary Sputum 12/21/22 18:45 Blood Culture - Preliminary Blood 12/21/22 19:00 Blood Culture - Preliminary Blood Assessment and Plan Assessment: 1. Acute kidney injury, nonoliguric ATN secondary to low blood pressure in the setting of use of AMY inhibitor's. Lisinopril is currently discontinued. Continue with IV Lasix at current dose. Status post albumin after paracentesis 2. Liver cirrhosis and ascites with portal hypertension status post paracentesis of 6.9 L 3. Alcoholic liver disease 4. Anemia rule out iron deficiency 5. Right lower lobe infiltrate, possible pneumonia 6. COPD exacerbation 7. Thrombocytopenia secondary to alcoholic liver disease Plan: Continue with current dose of Lasix Add an extra dose of Lasix due to mild hyperkalemia Continue to avoid high salt containing foods Maintain low potassium diet Consider decreasing dose of Aldactone if potassium remains elevated. Repeat labs as outpatient in 3-4 days.
[2022-12-25 12:24] VITALS: PULSE 93
--- NOTE | 2022-12-25 14:29 | P.PN ---
Subjective Progress Note Date: 12/25/22 I am seeing this patient in new consultation today 12/22/2022 for suspected right lower lobe community-acquired pneumonia. Patient is a 67-year-old white male with past medical history significant for asthma, alcoholism, alcoholic liver disease, and is a current tobacco smoker. Patient came to the emergency room yesterday evening complaining of shortness of breath and a nonproductive cough. He denies any fevers or chills. Denies sick contacts. Patient has had progressive ongoing shortness of breath since June when he came back from [place]. He does have a history of asthma, and uses a when necessary albuterol inhaler. This has not been helping. He continues to smoke approximately 5-6 ci garettes per day. He does have a distended abdomen and lower extremity edema. Denies any chest pain, palpitations, syncope, orthopnea. Denies any history of heart failure. Patient is currently sitting up in bed, on 2 L/m nasal cannula, in no acute distress. Chest x-ray on arrival shows a right lower lobe infiltrate and consolidation with a small right pleural effusion. CBC on arrival shows a WBC count of 7.7, hemoglobin 10.8, hematocrit 31.9, platelets 109. BMP on arrival was unremarkable. NT proBNP was low at 98. Troponin less than 0.012. LFTs are non-elevated, total bilirubin 4. Patient appears nontoxic, and is hemodynamically stable at this time. On today's evaluation of a 2022, the patient continues to be short of breath. Limited improvement since yesterday the patient is on accommodation of Rocephin and Zithromax. CAT scan of the chest was done yesterday and the patient was found to have a large right-sided pleural effusion along with compressive atelectasis in the right lung base. There is also nonspecific left upper lobe density measuring 1.2 cm in size. The patient has underlying liver cirrhosis with portal hypertension and splenomegaly and presence of paraesophageal collaterals and gastrohepatic lateral vessels all consistent with liver cirrhosis. He continues to have lower extremity edema. He does have moderate volume of ascites also identified. The echo was also done and the patient was found to have a normal LV function, no significant valvular abnormalities. The echoes at 10 hemoglobin of 8.1 and a platelet count of 87. Sodium is at 134, BUN is at 35 with a creatinine of 1.6. The pro-calcitonin level is at 0.09. He does have significant edema lower extremity bilaterally and the patient remains on IV Lasix. 12/24/2022, the patient is post thoracentesis and the patient is also post paracentesis. A total of 1.6 L of fluid was aspirated from the right lung and the patient also had a 6.9 L of fluid aspirated from the abdomen/ascitic fluid. The pleural fluid is a candidate. Meanwhile the patient was still maintained on diuretics. The creatinine is up to 1.6 with a BUN of 43 and a sodium level is at 137. The white cell count of 18 with a hemoglobin 9.2. The patient remains on IV Rocephin. The patient remains on bronchodilators and steroids. The patient was also seen by nephrology regarding the renal failure. The patientto Lasix 20 mg IV every 24 hours. He was also started on Aldactone. 12/25/2022, the patient is doing well. No specific complaints. 12/25/2022, the patient has no specific complaints. The patient is currently on room air oxygen. He is currently on Aldactone. He is also on Lasix 20 mg every 24 hours. Continues to have some residual edema lower extremity bilaterally. He is post thoracentesis and paracentesis. The hemoglobin is at 8.1. The white cell count of 8.5. BUN is at 42 with a creatinine of 1.4. Objective - Vital Signs Vital signs: Vital Signs Temp 98.2 F 12/25/22 07:00 Pulse 93 12/25/22 12:24 Resp 16 12/25/22 07:00 BP 126/63 12/25/22 07:00 Pulse Ox 94 L 12/25/22 07:00 FiO2 Intake & Output 12/24/22 12/25/22 12/25/22 18:59 06:59 18:59 Intake Total 778 Balance 778 Intake: Oral 778 Other: # Voids 3 2 # Bowel Movements 1 - Exam GENERAL EXAM: Alert, is 67-year-old white male appearing stated age, comfortable in no apparent distress. The patient is currently on room air oxygen with a pulse ox of 94% HEAD: Normocephalic and atraumatic EYES: Normal reaction of pupils, equal size. Nonicteric sclera NOSE: Clear with pink turbinates. THROAT: No erythema or exudates. NECK: No masses, no JVD. CHEST: No chest wall deformity. LUNGS: Equal air entry with expiratory wheezes heard throughout. There n are diminished lung sounds at the right base, along with inspiratory crackles at the left base. on 2 L/m nasal cannula. No conversational dyspnea or accessory muscle use.. CVS: S1 and S2 normal with no audible murmur, regular rhythm. No extra heart sounds. ABDOMEN: Abdomen is quite distended, active bowel sounds, no guarding or rigidity. SPINE: No scoliosis or deformity SKIN: No rashes CENTRAL NERVOUS SYSTEM: No focal deficits, tone is normal in all 4 extremities. EXTREMITIES: There 3+ bilateral lower extremity pitting edema. No clubbing, or cyanosis. Peripheral pulses are intact. - Labs CBC & Chem 7: 12/25/22 06:15 12/25/22 06:15 Labs: Abnormal Lab Results - Last 24 Hours (Table) 12/24/22 12/24/22 12/25/22 Range/Units 08:43 11:15 06:15 RBC 2.49 L (4.40-5.60) X 10*6/uL Hgb 8.1 L (13.0-17.0) d/dL Hct 24.6 L (39.6-50.0) % MCV 98.8 H (80.0-97.0) FL MCH 32.5 H (27.0-32.0) pg RDW 16.9 H (11.5-14.5) % Plt Count 79 L (140-440) X 10*3/uL Lymphocytes # 0.65 L (0.90-5.00) X 10*3/uL Eosinophils # 0 L (0.04-0.35) X 10*3/uL BUN (9.0-27.0) mg/dL Est GFR (CKD-EPI) (>=60) BUN/Creatinine Ratio (12.00-20.00) Ratio Glucose (70-110) mg/dL Iron 25 L (65-175) UG/DL % Saturation 9.12 L (15.00-50.00) Transferrin 196.0 L (204.0-354.0) mg/dL Fluid Appearance Cloudy A (Clear) 12/25/22 Range/Units 06:15 RBC (4.40-5.60) X 10*6/uL Hgb (13.0-17.0) d/dL Hct (39.6-50.0) % MCV (80.0-97.0) FL MCH (27.0-32.0) pg RDW (11.5-14.5) % Plt Count (140-440) X 10*3/uL Lymphocytes # (0.90-5.00) X 10*3/uL Eosinophils # (0.04-0.35) X 10*3/uL BUN 42.7 H (9.0-27.0) mg/dL Est GFR (CKD-EPI) 54 L (>=60) BUN/Creatinine Ratio 30.50 H (12.00-20.00) Ratio Glucose 121 H (70-110) mg/dL Iron (65-175) UG/DL % Saturation (15.00-50.00) Transferrin (204.0-354.0) mg/dL Fluid Appearance (Clear) Microbiology - Last 24 Hours (Table) 12/23/22 12:45 Gram Stain - Preliminary Pleural Fluid Body Fluid Culture - Preliminary 12/24/22 08:23 Gram Stain - Preliminary Sputum 12/21/22 18:45 Blood Culture - Preliminary Blood 12/21/22 19:00 Blood Culture - Preliminary Blood Assessment and Plan Assessment: Acute hypoxemic respiratory failure secondary to fluid overload and a large right-sided pleural effusion. CAT scan of the chest confirms presence of moderate to large size right-sided pleural effusion. The patient underwent thor acentesis with evacuation of 1.6 L of fluid, times a day probably related to liver cirrhosis and the patient is currently on room air oxygen. Chronic liver cirrhosis alcoholic in nature with evidence of splenomegaly, portal hypertension and ascites and lower extremity edema, a total of 7 L of fluid was aspirated also from the abdomen/ascitic fluid Acute kidney injury and the patient is currently on Lasix and Aldactone. Nephrology is on the case. Consider ATN nonoliguric in a setting of low blood pressure and use of a centimeters. The AMY inhibitor was discontinued and the patient was kept on IV Lasix and the patient was also given IV albumin post paracentesis. The creatinine is stable and improved compared to yesterday's currently down to 1.4 Shortness of breath secondary to above COPD/Acute asthma exacerbation, secondary to above Bilateral lower extremity edema Essential hypertension History of alcoholism Thrombocytopenia, likely related to above, secondary to chronic liver disease Chronic ongoing nicotine dependence Nonspecific left upper lobe pulmonary nodule measuring around 1 cm in size, subpleural, likely inflammatory Plan Patient is to maintain on Symbicort on outpatient basis regarding his COPD/asthma Continue Lasix and Aldactone on outpatient basis Fluid restriction Avoid alcohol drinking No need for antibioticsn Echocardiogram was noted and the patient has a preserved LV function Continue antibiotics Pneumonia is doubtful. Pro-calcitonin level is low We'll continue to follow
[2022-12-26] MEDS ORDERED: SPIRONOLACTONE 25 MG TAB PO SCH (09:00)
--- NOTE | 2022-12-28 06:42 | P.DS ---
Providers Date of admission: 12/21/22 18:22 Expected date of discharge: 12/25/22 Attending physician: Christiano Stroud Consults: 12/21/22 22:34 Consult Physician Urgent Consulting Provider: Christiano Gonzales Consult Reason/Comments: asthma exacerbation, cap Do you want consulting provider notified?: Yes 12/23/22 13:09 Consult Physician Urgent Consulting Provider: Yanci Hernandez Consult Reason/Comments: harish, cirrhosis Do you want consulting provider notified?: Yes Primary care physician: Physician Nonstaff Hospital Course: Final diagnosis Shortness of breath with acute hypoxic respiratory failure multifactorial, secondary to chronic obstructive pulmonary disease, acute exacerbation as well as bilateral pleural effusions Acute kidney injury, acute tubular necrosis secondary to lisinopril which has been discontinued Status post right-sided thoracentesis for right-sided pleural effusion with approximately 1600 mL's removed and sent for analysis Left upper lobe spiculated 1.2 cm nodular density will need outpatient PET/CT for further evaluation History of asthma Concerns for Right lower lobe infiltrate, community-acquired, ruled out suspicion is low improved calcitonin is 0.09 Continued ongoing nicotine dependence Hypertension history Ascites most likely secondary to cirrhosis status post paracentesis of over 6 L removed Cirrhosis, most likely alcoholic from previous abuse, quit one year ago in February History of alcohol abuse Thrombocytopenia, secondary to above Obesity with a BMI of 36.8 GI prophylaxis DVT prophylaxis Full code Discharge disposition Patient is being discharged in a stable condition with guarded prognosis to home. Patient will follow-up with Dr. Emmanuel in the outpatient setting upon discharge. Patient is to continue with medications as prescribed flow and outpatient follow-up with GI as well as pulmonary and nephrology as scheduled. Total time taken is greater than 35 minutes. Hospital course This is a 67-year-old male who was recently admitted creasing shortness of breath, abdominal distention being closely monitored. Patient evaluated by GI along with pulmonary and nephrology. Patient with cirrhosis underwent paracentesis of over 6 L removed. Patient also having shortness of breath with concerns initially of pneumonia although likely shortness of breath, despite pleural effusions and is status post thoracentesis on the right approximately 2 L removed. Specimens with no growth. Patient started on Lasix and Aldactone and encouraged close outpatient follow-up with the primary care provider to establish as well as outpatient GI nephrology follow-up. Patient also with a density in the lung eating outpatient PET scan and follow-up with pulmonary. Patient normally lives in [place] most of the year and has a GI appointment and of January and instructed to keep this appointment. Patient has been cleared by consultations and has been weaned to room air. Please refer to consultation notes for further HPI. Currently no reports of chest pain, shortness of breath, or palpitations. Patient is afebrile. No reports of nausea or vomiting and patient is tolerating diet. Patient will be going home today. Guarded prognosis. Physical exam: Gen: This is a 67-year-old male who is awake, alert and oriented 3, well- developed, well-nourished, obese HEENT: Head is atraumatic, normocephalic. Pupils equal, round. Sclerae is anicteric. NECK: Supple. No JVD. No lymphadenopathy. No thyromegaly. LUNGS: Diminished breath sounds bilaterally worse on the right with some coarse rhonchi and improved wheezes on expiration No intercostal retractions. HEART: Regular rate and rhythm. No murmur. ABDOMEN: Soft. Obese. Bowel sounds are present. No masses. No tenderness. EXTREMITIES: Bilateral lower extremity pedal edema with some improvement, 1+ pitting edema noted. No calf tenderness. NEUROLOGICAL: Patient is awake, alert and oriented x3. Cranial nerves 2 through 12 are grossly intact. Please refer to medication reconciliation sheet for a list of medications. The impression and plan of care has been dictated by Loree Mayorga, Nurse Practitioner as directed. Dr. Brice MD I have performed a history and examination and MDM of this patient, discussed the same with the dictator, and agree with the dictator's assessment and plan as written ,documented as a scribe. Based on total visit time, I have performed more than 50% of the visit. Patient Condition at Discharge: Fair Plan - Discharge Summary Discharge Rx Participant: No New Discharge Prescriptions: New Spironolactone [Aldactone] 50 mg PO DAILY #30 tab Furosemide [Lasix] 40 mg PO DAILY #30 tablet Budesonide-Formot 160-4.5 Mcg [Symbicort 160-4.5 Mcg Inhaler] 2 puff INHALATION RT-BID 30 Days #1 each predniSONE 10 mg PO DIRECTED #30 tab Folic Acid-Vit B Complex-Vit C [Nephrocaps] 1 each PO DAILY #30 cap Continue Turmeric Root Extract [Turmeric] 500 mg PO DAILY Cholecalciferol [Vitamin D3 (125 Mcg = 5000 Iu)] 125 mcg PO DAILY Discontinued lisinopriL [Zestril] 5 mg PO DAILY Saw Bunkie 500 mg PO DAILY Super B Complex 1 cap PO DAILY Discharge Medication List Cholecalciferol [Vitamin D3 (125 Mcg = 5000 Iu)] 125 mcg PO DAILY 12/21/22 [History] Turmeric Root Extract [Turmeric] 500 mg PO DAILY 12/21/22 [History] Budesonide-Formot 160-4.5 Mcg [Symbicort 160-4.5 Mcg Inhaler] 2 puff INHALATION RT-BID 30 Days #1 each 12/25/22 [Rx] Folic Acid-Vit B Complex-Vit C [Nephrocaps] 1 each PO DAILY #30 cap 12/25/22 [Rx] Furosemide [Lasix] 40 mg PO DAILY #30 tablet 12/25/22 [Rx] Spironolactone [Aldactone] 50 mg PO DAILY #30 tab 12/25/22 [Rx] predniSONE 10 mg PO DIRECTED #30 tab 12/25/22 [Rx] Follow up Appointment(s)/Referral(s): Yanci Hernandez MD [STAFF PHYSICIAN] - 01/19/23 10:20 am ([place] [facility]) Keara Martinez MD [STAFF PHYSICIAN] - 01/07/23 10:30 am (may be made with Nurse Practitioner Kimberly or Yumiko Gonzales) Natalya Emmanuel MD [STAFF PHYSICIAN] - 1 Week Nonstaff,Physician [Primary Care Provider] - 1-2 days Christiano Gonzales MD [STAFF PHYSICIAN] - 01/27/23 2:30 pm Ambulatory/Diagnostic Orders: Complete Blood Count w/diff [LAB.AMB] Time Frame: 1 Week, Location: None Selected Patient Instructions/Handouts: Ascites (DC), Low-Sodium Diet (DC), Paracentesis (DC), Thoracentesis (DC) Activity/Diet/Wound Care/Special Instructions: Activity Limited until follow-up Follow-up with a primary care provider to establish while here in [place] Follow-up with nephrology outpatient Continue low-sodium, renal, low potassium diet Continue medications as prescribed Use compression stockings or Juan Daniel wraps on bilateral lower extremities from toes up to the knees and elevate while at rest Recommend repeat labs in the next week to monitor CBC, CMP, magnesium Continue fluid restriction of 45 ounces per day Discharge Disposition: HOME SELF-CARE
[2022-12-28 10:07] LABS: Albumin, Fluid Source Ascites
== END 2022-12-25 14:52 | disposition home or self-care (01) | DRG 432 ==
LOC: EC 13:10 → OBSVTOIN 18:22 → 6NMEDSUR 18:22
PROVIDERS: ADMIT Hospitalist; ATTEND Hospitalist
PROC: 0W993ZZ Drainage of Right Pleural Cavity, Percutaneous Approach (ICD-10-PCS; principal; 2022-12-23)
PROC: 0W9G3ZZ Drainage of Peritoneal Cavity, Percutaneous Approach (ICD-10-PCS; 2022-12-24)
DX: K70.31 Alcoholic cirrhosis of liver with ascites (principal); J96.01 Acute respiratory failure with hypoxia; N17.0 Acute kidney failure with tubular necrosis; J44.1 Chronic obstructive pulmonary disease with (acute) exacerbation; J45.901 Unspecified asthma with (acute) exacerbation; J98.11 Atelectasis; K76.6 Portal hypertension; J91.8 Pleural effusion in other conditions classified elsewhere; T46.4X5A Adverse effect of angiotensin-converting-enzyme inhibitors, initial encounter; D69.59 Other secondary thrombocytopenia; E66.9 Obesity, unspecified; E87.70 Fluid overload, unspecified; F17.210 Nicotine dependence, cigarettes, uncomplicated; R91.1 Solitary pulmonary nodule; I10 Essential (primary) hypertension; I89.0 Lymphedema, not elsewhere classified; Z68.36 Body mass index [BMI] 36.0-36.9, adult; Z79.899 Other long term (current) drug therapy; Z88.8 Allergy status to other drugs, medicaments and biological substances
CPT/HCPCS: 36415; 49083; 71046; 71260; 76705; 76770; 80048; 80053; 81003; 82042; 82465; 82945; 83540; 83550; 83615; 83735; 83880; 84145; 84157; 84484; 85025; 85610; 85730; 87040; 87070; 87205; 87449; 88108; 88305; 88341; 88342; 89050; 93005; 93306; 94640; 94760; 96365; 96367; 96375; 96376; 99285

== ENCOUNTER → 2023-01-07 | Outpatient (CLI) | payer MEDICARE ==
[2023-01-07 15:42] LABS: HGB 10.4 d/dL (13.0-17.0); MCH 31.6 pg (27.0-32.0); MCHC 32.5 d/dL (32.0-37.0); MCV 97.3 FL (80.0-97.0); Mean Platelet Volume 11.4 FL (9.5-12.2); NRBC Per 100 WBC 0 X 10*3/uL (0.00-0.01); Platelet Count 84 X 10*3/uL (140-440); RBC 3.29 X 10*6/uL (4.40-5.60); RDW 17.3 % (11.5-14.5); WBC 16.11 X 10*3/uL (4.50-10.00)
[2023-01-07 17:00] LABS: ALT 36 U/L (10-49); AST 36 U/L (14-35); Albumin 3.1 d/dL (3.8-4.9); Albumin/Globulin Ratio 0.86 Ratio (1.60-3.17); Alkaline Phosphatase 93 U/L (41-126); BUN/Creat Ratio 25.62 Ratio (12.00-20.00); Calcium 8.7 mg/dL (8.7-10.3); Carbon Dioxide 21.9 mmol/L (21.6-31.8); Chloride 102 mmol/L (96-109); Globulin 3.6 d/dL (1.6-3.3); Glucose 84 mg/dL (70-110); Potassium 4.7 mmol/L (3.5-5.5); Sodium 135 mmol/L (135-145); Total Bilirubin 2.3 mg/dL (0.3-1.2); Total Protein 6.7 d/dL (6.2-8.2)
== END | disposition home or self-care (01) ==
LOC: LABWHC1 11:19
PROVIDERS: ATTEND Nurse Practitioner Family
DX: K70.31 Alcoholic cirrhosis of liver with ascites (principal)
CPT/HCPCS: 36415; 80053; 82105; 85027